=== PATIENT | male | born 1955 | race Caucasian/White ===

== ENCOUNTER 2024-10-13 21:49 | Observation (INO) ==
[2024-10-13] MEDS: SODIUM CHLORIDE 0.9% 1,000 ML IV ONE (22:13)
[2024-10-13 22:16] LABS: Basophils # (auto) 0.05 K/uL (0.00-0.20); Basophils % (auto) 0.4 %; Eosinophils % (auto) 1.6 %; Hematocrit (blood only) 47.4 % (42.0-52.0); Hemoglobin 16.8 g/dl (14.0-18.0); Immature Granulocytes # (auto) 0.06 K/uL (0.01-0.20); Immature Granulocytes % (auto) 0.5 %; Lymphocytes # (auto) 1.74 K/uL (1.20-3.40); Lymphocytes % (auto) 13.5 %; Mean Corpuscular Hemoglobin 31.3 pg (25.0-34.0); Mean Corpuscular Hgb Conc 35.4 g/dL (32.0-36.0); Mean Corpuscular Volume 88.3 fL (80.0-100.0); Mean Platelet Volume 9.6 fL (9.4-12.4); Monocytes # (auto) 0.66 K/uL (0.11-0.59); Monocytes % (auto) 5.1 %; Neutrophils # (auto) 10.18 K/uL (1.40-6.50); Neutrophils % (auto) 78.9 %; Platelet Count 156 K/uL (130-400); RDW Standard Deviation 41.7 fL (36.4-46.3); Red Blood Count 5.37 M/uL (4.70-6.10); White Blood Count 12.89 K/ul (4.8-10.8)
--- NOTE | 2024-10-13 22:25 | Emergency Department Note ---
Impression & Plan Syncope, Transaminitis, Vomiting ED Provider Note NAME: SONIA GIRON AGE: 69 SEX: M : 1955 ARRIVES VIA: Ambulance INFORMANT: Patient ED PROVIDER(S): Shawn Cullen MD CHIEF COMPLAINT: Syncope PLAN: Disposition: Admit MEDICAL DECISION MAKING: The patient is a pleasant 69-year-old gentleman with a past medical history of hypertension, hyperlipidemia, GERD, diabetes who presents to the emergency department via EMS for evaluation of episode of syncope which occurred prior to arrival when the patient was playing cards with friends and family and bystanders noted that the patient suddenly sunk into his chair with his head down but eyes open as if he were yawning but was unresponsive. During the episode he appeared to attempt to speak but was somewhat slurred and then again unresponsive where the episode lasted approximately 3 minutes. Patient had apparently been incontinent of urine. The patient reports he was feeling fine this evening and does not recall any preceding symptoms nor any movements during the episode where he was attempting to speak. He denies any recent fevers, chills, cough, congestion, GI or symptoms. Patient's reports she did have norovirus last week and had recovered uneventfully. On evaluation patient no acute distress, afebrile with blood pressures to 170s/90s but improving with IV fluid hydration and otherwise stable vital signs. Appears clinically dry. No focal neurologic deficits. EKG without overt acute ischemia. Chest x-ray negative for acute cardiopulmonary process. WBC 12.8 K with neutrophilia but no left shift, nonspecific. H/H and platelets within normal limits. Chemistry without metabolic acidosis. Total bilirubin 1.9 and direct bilirubin 0.3, nonspecific. AST and ALT are mildly above normal at 50 and 63, respectively. CPK within normal limits. High-sensitivity troponin 9.0, within normal limits. Lipase is normal. TSH within normal limits. UA without evidence of infection. Respiratory viral panel was negative. CT of the head and CT of the head neck were 4 negative for ICH, ischemia or severe narrowing occlusion of large vessels. CT of the abdomen pelvis demonstrates evidence of enteritis and no evidence of obstruction. Gallbladder is unremarkable without ductal dilatation. Given the patient's episode of syncope without clear precipitating factors patient and family do agree with plan for admission for further observation and management. Case was discussed with Dr. Loo, [facility] [place], who will evaluate the patient for admission. Further management per admitting team. Triage Nursing notes reviewed and agree them. Prior/external medical records reviewed Vital Signs: reviewed Differential diagnosis: Vasovagal event, dehydration, infection, hypoglycemia, electrolyte abnormalities, cardiac sources, intracerebral event, pulmonary embolism, seizure, toxicologic, neurologic, as well as other pathologies. ER treatment provided: See below. Diagnostics interpreted by me: ECG: Normal sinus rhythm, 72 bpm, no ectopy, right bundle branch block, left anterior fascicular block, no overt ST elevation or depression, QTc 479, QRS 150. Cardiac Monitoring: An order for continuous cardiac monitoring was placed and demonstrated Normal sinus rhythm, 72 bpm, no ectopy, Laboratory studies: See below Imaging studies: See below Consultation(s): Case was discussed with Dr. Loo, [facility] [place], who will evaluate the patient for admission. HPI: The patient is a pleasant 69-year-old gentleman with a past medical history of hypertension, hyperlipidemia, GERD, diabetes who presents to the emergency department via EMS for evaluation of episode of syncope which occurred prior to arrival when the patient was playing cards with friends and family and bystanders noted that the patient suddenly sunk into his chair with his head down but eyes open as if he were yawning but was unresponsive. During the episode he appeared to attempt to speak but was somewhat slurred and then again unresponsive where the episode lasted approximately 3 minutes. Patient had apparently been incontinent of urine. The patient reports he was feeling fine this evening and does not recall any preceding symptoms nor any movements during the episode where he was attempting to speak. He denies any recent fevers, chills, cough, congestion, GI or symptoms. Patient's reports she did have norovirus last week and had recovered uneventfully. ROS: See above HPI for pertinent positives & negatives. A total of 10 systems reviewed and were otherwise negative. VITALS:See Below PHYSICAL EXAMINATION: GENERAL: Awake, alert, in no distress HENT: Normocephalic, atraumatic. Oropharynx with dry mucous membranes and otherwise unremarkable. EYES: Normal conjunctiva. Sclera non-icteric. NECK: Supple. No nuchal rigidity. FROM. No JVD. RESPIRATORY: Clear to auscultation. CARDIAC: Regular rate, normal rhythm. Extremities warm and well perfused. Pulses equal. ABDOMEN: Soft, non-distended. No tenderness to palpation. No rebound or guarding. No masses. MUSCULOSKELETAL: Chest examination reveals no tenderness. The back is symmetrical on inspection without obvious abnormality. There is no CVA tenderness to palpation. No joint edema. LOWER EXTREMITIES: Calves are equal size bilaterally and non-tender. No edema. No discoloration. NEURO: No focal sensory or motor deficits noted. CNII-XII grossly intact. 5/5 strength and SILT x 4 extremities. Cerebellar function intact including [id number], alternating palms, [id number]. SKIN: No rash or jaundice noted. Shawn Cullen MD Past Med/Surg History Problem List (Updated 10/14/24 @ 16:27 by Shawn Cullen MD) Vomiting (Acute) Transaminitis (Acute) Gilbert syndrome HLD (hyperlipidemia) HTN (hypertension) GERD (gastroesophageal reflux disease) T2DM (type 2 diabetes mellitus) Syncope (Acute) Social History Smoking Status: Never smoker Hx Alcohol Use: No Hx Substance Use: No Preferred Language: Japanese Communication Ability: Effective Hansard Reporter Required: No Beliefs That Will Affect Care: None Current Living Situation: Spouse Other Information That Helps Us Care for You: No Feels Safe at Home: Yes Safety Concerns: Feels Safe At This Time Assistive Devices: None Allergies Allergies Allergy/AdvReac Type Severity Reaction Status Date / Time No Known Allergies Allergy Verified 10/14/24 03:15 Home Meds Home Medications Medication Instructions Recorded Confirmed allopurinol 300 mg tablet 300 mg DAILY 10/14/24 10/14/24 aspirin 81 mg tablet 81 mg PO DAILY 10/14/24 10/14/24 atorvastatin 40 mg tablet 40 mg HS 10/14/24 10/14/24 glipizide 10 mg tablet, extended 10 mg PO DAILY 10/14/24 10/14/24 release 24 hr irbesartan 75 mg tablet 75 mg DAILY 10/14/24 10/14/24 metformin 500 mg tablet,extended 500 mg PO DAILY 10/14/24 10/14/24 release 24 hr omeprazole 40 mg capsule,delayed 40 mg DAILY 10/14/24 10/14/24 release omeprazole 40 mg capsule,delayed 40 mg DAILY 10/14/24 10/14/24 release Results & Data (ED) Vital Signs Vital Signs - 24 hr 10/13/24 21:59 10/13/24 22:01 10/13/24 22:03 Temperature 36.3 C L Temperature Source Oral Pulse Rate 68 70 Pulse Rate [Apical] Pulse Rate from SpO2 Sensor Respiratory Rate 18 Respiratory Effort / Characteristics Non-Labored Spontaneous Respiratory Depth Normal Blood Pressure 172/91 H Blood Pressure [Right Arm] Blood Pressure Mean 118 Blood Pressure Mean [Right Arm] Pulse Oximetry 96 96 Oxygen Delivery Method Room Air Room Air Sepsis Recent Fever Within 48 Hours No Sepsis New/Unexplained Change in Mental Status No Sepsis Action Taken by Nursing No Action Required 10/13/24 23:31 10/14/24 01:43 10/14/24 01:56 Temperature Temperature Source Pulse Rate 88 Pulse Rate [Apical] 82 88 Pulse Rate from SpO2 Sensor Respiratory Rate 18 18 Respiratory Effort / Characteristics Respiratory Depth Blood Pressure Blood Pressure [Right Arm] 137/87 136/78 Blood Pressure Mean Blood Pressure Mean [Right Arm] 103 97 Pulse Oximetry 93 95 Oxygen Delivery Method Room Air Room Air Sepsis Recent Fever Within 48 Hours Sepsis New/Unexplained Change in Mental Status Sepsis Action Taken by Nursing 10/14/24 02:03 Temperature Temperature Source Pulse Rate 89 Pulse Rate [Apical] Pulse Rate from SpO2 Sensor 88 Respiratory Rate 20 Respiratory Effort / Characteristics Respiratory Depth Blood Pressure 140/84 Blood Pressure [Right Arm] Blood Pressure Mean 102 Blood Pressure Mean [Right Arm] Pulse Oximetry 93 Oxygen Delivery Method Sepsis Recent Fever Within 48 Hours Sepsis New/Unexplained Change in Mental Status Sepsis Action Taken by Nursing Laboratory Data Attestation: I reviewed the patient's lab results. 10/13/24 21:57 10/13/24 21:57 Lab Results 10/13/24 10/13/24 10/14/24 Range/Units 21:57 23:05 00:18 WBC 12.89 H (4.8-10.8) K/ul RBC 5.37 (4.70-6.10) M/uL Hgb 16.8 (14.0-18.0) g/dl Hct 47.4 (42.0-52.0) % MCV 88.3 (80.0-100.0) fL MCH 31.3 (25.0-34.0) pg MCHC 35.4 (32.0-36.0) g/dL RDW Std Deviation 41.7 (36.4-46.3) fL RDW Coeff of Yaw 13.0 (11.5-14.5) % Plt Count 156 (130-400) K/uL MPV 9.6 (9.4-12.4) fL Immature Gran % (Auto) 0.5 % Neut % (Auto) 78.9 % Lymph % (Auto) 13.5 % [place] % (Auto) 5.1 % Eos % (Auto) 1.6 % Baso % (Auto) 0.4 % Neut # (Auto) 10.18 H (1.40-6.50) K/uL Lymph # (Auto) 1.74 (1.20-3.40) K/uL [place] # (Auto) 0.66 H (0.11-0.59) K/uL Eos # (Auto) 0.20 (0.00-0.50) K/uL Baso # (Auto) 0.05 (0.00-0.20) K/uL Immature Gran # (Auto) 0.06 (0.01-0.20) K/uL PT 11.0 (9.0-12.0) Seconds INR 1.0 (0.9-1.1) Sodium 141 (136-145) mmol/L Potassium 3.8 (3.5-5.1) mmol/L Chloride 104 (98-107) mmol/L Carbon Dioxide 27 (21-32) mmol/L Anion Gap 10 (3-11) BUN 21 (6-23) mg/dl Creatinine 1.11 (0.6-1.4) mg/dl Est Cr Clr Drug Dosing 70.5 ml/min eGFR 71.88 BUN/Creatinine Ratio 18.9 (10-20) Glucose 170 H (70-99(Fasting)) mg/dl Calcium 9.2 (8.6-10.3) mg/dl Phosphorus 4.1 (2.5-4.9) mg/dl Magnesium 1.9 (1.7-2.4) mg/dl Total Bilirubin 1.9 H (0.2-1.0) mg/dl Direct Bilirubin 0.3 H (0-0.2) mg/dl AST 50 H (13-39) U/L ALT 63 H (7-52) U/L Alkaline Phosphatase 127 H (34-104) U/L Total Creatine Kinase 82 (30-223) U/L Troponin I High Sens 9.0 (0-20) pg/ml Total Protein 7.5 (6.0-8.3) gm/dl Albumin 4.2 (3.4-5.0) gm/dl Globulin 3.3 (2.5-4.0) gm/dl Albumin/Globulin Ratio 1.3 (0.9-2) Lipase 21 (11-82) U/L TSH 3.897 (0.300-4.500) uIu/ml Urine Color Yellow Urine Appearance Clear (Clear) Urine pH 5.0 (4.5-7.5) Ur Specific Curtis > 1.045 H (1.000-1.030) Urine Protein Negative (Negative) Urine Glucose (UA) Negative (Negative) Urine Ketones 1+ H (Negative) Urine Blood Negative (Negative) Urine Nitrite Negative (Negative) Urine Bilirubin Negative (Negative) Urine Urobilinogen Negative (Negative) Ur Leukocyte Esterase Negative (Negative) Adenovirus (PCR) Not Detected (NotDetected) B. pertussis DNA (PCR) Not Detected (NotDetected) B.parapertussis DNA PCR Not Detected (NotDetected) C. pneumoniae DNA (PCR) Not Detected (NotDetected) Coronavirus OC43 (PCR) Not Detected (NotDetected) Coronavirus HKU1 (PCR) Not Detected (NotDetected) Coronavirus 229E (PCR) Not Detected (NotDetected) SARS-CoV-2 (PCR) Not Detected (NotDetected) Coronavirus NL63 (PCR) Not Detected (NotDetected) Human Metapneumovir PCR Not Detected (NotDetected) Influenza Type A (PCR) Not Detected (NotDetected) Influenza Type B (PCR) Not Detected (NotDetected) M. pneumoniae (PCR) Not Detected (NotDetected) Parainfluenza 1 (PCR) Not Detected (NotDetected) Parainfluenza 2 (PCR) Not Detected (NotDetected) Parainfluenza 3 (PCR) Not Detected (NotDetected) Parainfluenza 4 (PCR) Not Detected (NotDetected) RSV (PCR) Not Detected (NotDetected) Entero/Rhino (PCR) Not Detected (NotDetected) Administered Medications Acetaminophen (Acetaminophen 500 Mg Tab) 1,000 mg PO Q8H PRN PRN Reason: Pain or Fever Stop: 11/13/24 03:37 Last Admin: 10/14/24 08:48 Dose: 1,000 mg Documented By: CB Allopurinol (Allopurinol 300 Mg Tab) 300 mg PO DAILY ONEL Stop: 11/13/24 08:59 Last Admin: 10/14/24 08:46 Dose: 300 mg Documented By: CB Aspirin (Aspirin 81 Mg Ectab) 81 mg PO DAILY ONEL Stop: 11/13/24 08:59 Last Admin: 10/14/24 08:46 Dose: 81 mg Documented By: CB Enoxaparin Sodium (Enoxaparin Inj 40 Mg/0.4 Ml Syr) 40 mg SQ Q24H ONEL Stop: 11/13/24 08:59 Last Admin: 10/14/24 08:46 Dose: 40 mg Documented By: CB Glipizide (Glipizide Er 2.5 Mg Tabcr) 10 mg PO QDB ONEL Stop: 11/13/24 07:29 Last Admin: 10/14/24 08:45 Dose: 10 mg Documented By: KAY Parenteral Electrolytes (Plasma-Lyte A Ph 7.4) 1,000 mls @ 80 mls/hr IV .[id number] ONEL Stop: 10/15/24 04:44 Last Admin: 10/14/24 16:03 Dose: 80 mls/hr Documented By: Infusion: 10/14/24 16:03 Dose: Infused Documented By: Admin: 10/14/24 04:03 Dose: 80 mls/hr Documented By: MRL Losartan Potassium (Losartan Potassium 25 Mg Tab) 25 mg PO DAILY ONEL Stop: 11/13/24 08:59 Last Admin: 10/14/24 08:46 Dose: 25 mg Documented By: CB Metformin HCl (Metformin Hcl Er 500 Mg Tabcr) 500 mg PO DAILY ONEL Stop: 11/13/24 08:59 Last Admin: 10/14/24 10:41 Dose: Not Given Documented By: CB Pantoprazole Sodium (Pantoprazole 40 Mg Tab) 40 mg PO DAILY ONEL Stop: 11/13/24 08:59 Last Admin: 10/14/24 08:46 Dose: 40 mg Documented By: KAY Discontinued Medications Sodium Chloride (Nss) 1,000 mls @ 999 mls/hr IV .Q1H1M ONE Stop: 10/13/24 23:04 Last Infusion: 10/14/24 00:05 Dose: Infused Documented By: Admin: 10/13/24 22:13 Dose: 999 mls/hr Documented By: MARLEY Famotidine (Pepcid 20mg Iv Push) 20 mg in 5 mls @ 2.5 mls/min IV NOW STA Stop: 10/13/24 22:52 Last Admin: 10/13/24 23:04 Dose: 2.5 mls/min Documented By: MARLEY Ioversol (Optiray 320 125ml) 118 ml IV ONCE ONE Stop: 10/13/24 23:15 Last Admin: 10/13/24 23:14 Dose: 118 ml Documented By: JEFF Ondansetron HCl (Ondansetron Inj 2 Mg/Ml 2 Ml Vial) 4 mg IV NOW STA Stop: 10/13/24 22:52 Last Admin: 10/13/24 23:04 Dose: 4 mg Documented By: MARLEY Imaging Data Radiologist's Impression: Chest X-Ray 10/13/24 22:03 Exam(s): XR CXR 1 VIEW EXAM: XR Chest, 1 View CLINICAL HISTORY: Reason for exam: syncope. TECHNIQUE: Frontal view of the chest. COMPARISON: No relevant prior studies available. FINDINGS: Lungs: No infiltrate. No atelectasis. No CHF. Pleural space: No pleural effusion. No pneumothorax. Heart: Unremarkable. No cardiomegaly. Mediastinum: Unremarkable. Normal mediastinal contour. Bones/joints: Unremarkable. No acute fracture. IMPRESSION: No acute abnormality. Electronically signed by: Zhang Olvera M.D. 10/14/24 00:51 AM Abdomen/Pelvis CT 10/13/24 22:51 Exam(s): CT ABDOMEN + PELVIS With Contrast IV Amt: 118 cc opti 320 EXAM: CT Abdomen and Pelvis With Intravenous Contrast CLINICAL HISTORY: Syncope, n/v. TECHNIQUE: Axial computed tomography images of the abdomen and pelvis with intravenous contrast. CTDI is 27.95 mGy and DLP is 1503.52 mGy-cm. Automated exposure control was utilized for the study. A dose lowering technique was utilized adhering to the principles of ALARA. CONTRAST: Patient received 118 cc opti 320 of IV contrast COMPARISON: No relevant prior studies available. FINDINGS: Lung bases: Unremarkable. No mass. No consolidation. ABDOMEN: Liver: Hypodense/fatty. No mass. Gallbladder and bile ducts: Unremarkable. No calcified stones. No ductal dilation. Pancreas: Partially fatty replaced. No mass. No ductal dilation. Spleen: Top normal spleen 12.8 cm length. Adrenals: Unremarkable. No mass. Kidneys and ureters: 2.4 cm cyst lower pole left kidney. No obstructive uropathy. No obstructing renal or ureteral calculi. No hydronephrosis or hydroureter. Stomach and bowel: Small hiatal hernia. Top normal caliber proximal to mid small bowel with mild wall thickening consistent with a nonspecific enteritis. Remainder of bowel is unremarkable without obstruction or ileus. Few sigmoid colon diverticuli without evidence for diverticulitis. PELVIS: Appendix: No findings to suggest acute appendicitis. Bladder: Unremarkable. No mass. Reproductive: Heterogeneous prostate gland with calcifications. ABDOMEN and PELVIS: Intraperitoneal space: No free air. No free fluid. Bones/joints: No acute fracture. Degenerative changes of the spine. Soft tissues: Unremarkable. Vasculature: Atherosclerotic vascular calcifications. No abdominal aortic aneurysm. Lymph nodes: Unremarkable. No enlarged lymph nodes. IMPRESSION: Top normal caliber proximal to mid small bowel with mild wall thickening consistent with a nonspecific enteritis. Small hiatal hernia. Few sigmoid colon diverticuli without evidence for diverticulitis. Electronically signed by: Zhang Olvera M.D. 10/14/24 00:[address] 10/13/24 22:51 Exam(s): CT HEAD Without Contrast EXAM: CT Head Without Intravenous Contrast CLINICAL HISTORY: Syncope, n/v. TECHNIQUE: Axial computed tomography images of the head/brain without intravenous contrast. CTDI is 35.37 mGy and DLP is 624.41 mGy-cm. Automated exposure control was utilized for the study. A dose lowering technique was utilized adhering to the principles of ALARA. COMPARISON: No relevant prior studies available. FINDINGS: Brain: Ventricles and sulci normal in size and configuration for age. No acute stroke. No acute hemorrhage. No abnormal extra-axial fluid collection. Ventricles: No hydrocephalus. No midline shift. Bones/joints: Unremarkable. No acute fracture. Soft tissues: Unremarkable. Sinuses: Completely opacified visualized left maxillary sinus. IMPRESSION: No acute intracranial abnormality. Electronically signed by: Zhang Olvera M.D. 10/14/24 00:12 AM Head CTA 10/13/24 22:51 Exam(s): CTA HEAD With Contrast IV Amt: 118 cc opti 320 EXAM: CT Angiography Head With Intravenous Contrast CLINICAL HISTORY: Syncope, n/v. TECHNIQUE: Axial computed tomographic angiography images of the head with intravenous contrast. CTDI is 69.04 mGy and DLP is 1171.09 mGy-cm. Automated exposure control was utilized for the study. A dose lowering technique was utilized adhering to the principles of ALARA. 3D and MIP reconstructed images were created and reviewed. CONTRAST: Patient received 118 cc opti 320 of IV contrast COMPARISON: CT Brain 10-13-2024. FINDINGS: Right internal carotid artery: No acute abnormality. Intracranial segment is patent with no significant stenosis. No aneurysm. Right anterior cerebral artery: Unremarkable. No occlusion or significant stenosis. No aneurysm. Right middle cerebral artery: Unremarkable. No occlusion or significant stenosis. No aneurysm. Right posterior cerebral artery: Unremarkable. No occlusion or significant stenosis. No aneurysm. Right vertebral artery: At this carotid calcifications of the right vertebral artery with intact distal runoff. Left internal carotid artery: No acute abnormality. Intracranial segment is patent with no significant stenosis. No aneurysm. Left anterior cerebral artery: Unremarkable. No occlusion or significant stenosis. No aneurysm. Left middle cerebral artery: Unremarkable. No occlusion or significant stenosis. No aneurysm. Left posterior cerebral artery: Unremarkable. No occlusion or significant stenosis. No aneurysm. Left vertebral artery: Unremarkable as visualized. Basilar artery: Unremarkable. No occlusion or significant stenosis. No aneurysm. IMPRESSION: No large vessel occlusion. Electronically signed by: Zhang Olvera M.D. 10/14/24 00:22 AM Neck CTA 10/13/24 22:51 Exam(s): CTA NECK With Contrast IV Amt: 118 cc opti 320 EXAM: CT Angiography Neck With Intravenous Contrast CLINICAL HISTORY: Syncope, n/v. TECHNIQUE: Routine carotid CT angiography protocol was performed with intravenous contrast. NASCET criteria using the distal ICAs for comparison were used for evaluation of stenoses. CTDI is 69.04 mGy and DLP is 1171.09 mGy-cm. Automated exposure control was utilized for the study. A dose lowering technique was utilized adhering to the principles of ALARA. 3D and MIP reconstructed images were created and reviewed. CONTRAST: Patient received 118 cc opti 320 of IV contrast COMPARISON: None. FINDINGS: VASCULATURE: Right common carotid artery: Unremarkable. No occlusion or significant stenosis. No dissection. Right internal carotid artery: Mild calcified plaque at the carotid bulb without a hemodynamically significant stenosis. No dissection. Right external carotid artery: Unremarkable. No occlusion. Right vertebral artery: Unremarkable. No occlusion or significant stenosis. No dissection. Left common carotid artery: Unremarkable. No occlusion or significant stenosis. No dissection. Left internal carotid artery: Mild calcified plaque at the carotid bulb without a hemodynamically significant stenosis. No dissection. Left external carotid artery: Unremarkable. No occlusion. Left vertebral artery: Unremarkable. No occlusion or significant stenosis. No dissection. NECK: Bones/joints: Degenerative changes of the spine. No acute fracture. Soft tissues: Unremarkable. Lung apices: Clear. CAROTID STENOSIS REFERENCE USING NASCET CRITERIA: % ICA stenosis = (1 - narrowest ICA diameter/diameter of distal cervical ICA) x 100. Mild - <50% stenosis. Moderate - 50-69% stenosis. Severe - 70-94% stenosis. Near occlusion - 95-99% stenosis. Occluded - 100% stenosis. IMPRESSION: No hemodynamically significant stenosis. Electronically signed by: Zhang Olvera M.D. 10/14/24 00:29 AM Discharge Plan Visit Data Chief Complaint: Syncope Stated Complaint: Syncope ED Provider: Shawn Cullen Discharge Problem: Syncope, Transaminitis, Vomiting Patient Disposition: Admitted As Inpatient Discharge Instructions Interventions: ED Discharge Assessment Last Done: 10/14/24 03:07 Discharge Problem: Syncope Qualifiers: Syncope type: unspecified Qualified Code(s): R55 - Syncope and collapse Vomiting Qualifiers: Vomiting type: unspecified Nausea presence: unspecified Qualified Code(s): R 11.10 - Vomiting, unspecified
[2024-10-13 22:33] LABS: Albumin Globulin Ratio 1.3 (0.9-2); Albumin Level 4.2 gm/dl (3.4-5.0); BUN Creatinine Ratio 18.9 (10-20); Bilirubin,Total 1.9 mg/dl (0.2-1.0); Calcium 9.2 mg/dl (8.6-10.3); Creatinine Clr Calc Pharmacy 70.5 ml/min; Globulin 3.3 gm/dl (2.5-4.0); Magnesium 1.9 mg/dl (1.7-2.4); Phosphorus 4.1 mg/dl (2.5-4.9); Potassium 3.8 mmol/L (3.5-5.1); Total Protein 7.5 gm/dl (6.0-8.3)
[2024-10-13 22:49] LABS: Thyroid Stimulating Hormone 3.897 uIu/ml (0.300-4.500)
[2024-10-13] MEDS: ONDANSETRON INJ 2 MG/ML 2 ML VIAL IV STA (23:04)
[2024-10-13] MEDS: FAMOTIDINE 20MG IV PUSH 20 MG/5 ML SYR IV STA (23:04)
[2024-10-13 23:10] LABS: Bilirubin Direct 0.3 mg/dl (0-0.2)
[2024-10-13] MEDS: OPTIRAY 320 125ml IV ONE (23:14)
[2024-10-14 00:07] LABS: Adenovirus PCR Not Detected (NotDetected); Bordetella parapertussis PCR Not Detected (NotDetected); Bordetella pertussis PCR Not Detected (NotDetected); Chlamydia pneumoniae PCR Not Detected (NotDetected); Coronavirus 229E PCR Not Detected (NotDetected); Coronavirus CoV-2 (COVID19)PCR Not Detected (NotDetected); Coronavirus HKU1 PCR Not Detected (NotDetected); Coronavirus NL63 PCR Not Detected (NotDetected); Coronavirus OC43PCR Not Detected (NotDetected); Human Metapneumovirus PCR Not Detected (NotDetected); Influenza A PCR Not Detected (NotDetected); Influenza B PCR Not Detected (NotDetected); Mycoplasma pneumoniae PCR Not Detected (NotDetected); Parainfluenza Virus 1 PCR Not Detected (NotDetected); Parainfluenza Virus 2 PCR Not Detected (NotDetected); Parainfluenza Virus 3 PCR Not Detected (NotDetected); Parainfluenza Virus 4 PCR Not Detected (NotDetected); Respiratory Syncytial VirusPCR Not Detected (NotDetected); Rhinovirus/Enterovirus PCR Not Detected (NotDetected)
--- NOTE | 2024-10-14 00:13 | CT Scan Report ---
Exam(s): CT HEAD Without Contrast EXAM: CT Head Without Intravenous Contrast CLINICAL HISTORY: Syncope, n/v. TECHNIQUE: Axial computed tomography images of the head/brain without intravenous contrast. CTDI is 35.37 mGy and DLP is 624.41 mGy-cm. Automated exposure control was utilized for the study. A dose lowering technique was utilized adhering to the principles of ALARA. COMPARISON: No relevant prior studies available. FINDINGS: Brain: Ventricles and sulci normal in size and configuration for age. No acute stroke. No acute hemorrhage. No abnormal extra-axial fluid collection. Ventricles: No hydrocephalus. No midline shift. Bones/joints: Unremarkable. No acute fracture. Soft tissues: Unremarkable. Sinuses: Completely opacified visualized left maxillary sinus. IMPRESSION: No acute intracranial abnormality. Electronically signed by: Zhang Olvera M.D. 10/14/24 00:12 AM
--- NOTE | 2024-10-14 00:23 | CT Scan Report ---
Exam(s): CTA HEAD With Contrast IV Amt: 118 cc opti 320 EXAM: CT Angiography Head With Intravenous Contrast CLINICAL HISTORY: Syncope, n/v. TECHNIQUE: Axial computed tomographic angiography images of the head with intravenous contrast. CTDI is 69.04 mGy and DLP is 1171.09 mGy-cm. Automated exposure control was utilized for the study. A dose lowering technique was utilized adhering to the principles of ALARA. 3D and MIP reconstructed images were created and reviewed. CONTRAST: Patient received 118 cc opti 320 of IV contrast COMPARISON: CT Brain 10-13-2024. FINDINGS: Right internal carotid artery: No acute abnormality. Intracranial segment is patent with no significant stenosis. No aneurysm. Right anterior cerebral artery: Unremarkable. No occlusion or significant stenosis. No aneurysm. Right middle cerebral artery: Unremarkable. No occlusion or significant stenosis. No aneurysm. Right posterior cerebral artery: Unremarkable. No occlusion or significant stenosis. No aneurysm. Right vertebral artery: At this carotid calcifications of the right vertebral artery with intact distal runoff. Left internal carotid artery: No acute abnormality. Intracranial segment is patent with no significant stenosis. No aneurysm. Left anterior cerebral artery: Unremarkable. No occlusion or significant stenosis. No aneurysm. Left middle cerebral artery: Unremarkable. No occlusion or significant stenosis. No aneurysm. Left posterior cerebral artery: Unremarkable. No occlusion or significant stenosis. No aneurysm. Left vertebral artery: Unremarkable as visualized. Basilar artery: Unremarkable. No occlusion or significant stenosis. No aneurysm. IMPRESSION: No large vessel occlusion. Electronically signed by: Zhang Olvera M.D. 10/14/24 00:22 AM
--- NOTE | 2024-10-14 00:29 | CT Scan Report ---
Exam(s): CTA NECK With Contrast IV Amt: 118 cc opti 320 EXAM: CT Angiography Neck With Intravenous Contrast CLINICAL HISTORY: Syncope, n/v. TECHNIQUE: Routine carotid CT angiography protocol was performed with intravenous contrast. NASCET criteria using the distal ICAs for comparison were used for evaluation of stenoses. CTDI is 69.04 mGy and DLP is 1171.09 mGy-cm. Automated exposure control was utilized for the study. A dose lowering technique was utilized adhering to the principles of ALARA. 3D and MIP reconstructed images were created and reviewed. CONTRAST: Patient received 118 cc opti 320 of IV contrast COMPARISON: None. FINDINGS: VASCULATURE: Right common carotid artery: Unremarkable. No occlusion or significant stenosis. No dissection. Right internal carotid artery: Mild calcified plaque at the carotid bulb without a hemodynamically significant stenosis. No dissection. Right external carotid artery: Unremarkable. No occlusion. Right vertebral artery: Unremarkable. No occlusion or significant stenosis. No dissection. Left common carotid artery: Unremarkable. No occlusion or significant stenosis. No dissection. Left internal carotid artery: Mild calcified plaque at the carotid bulb without a hemodynamically significant stenosis. No dissection. Left external carotid artery: Unremarkable. No occlusion. Left vertebral artery: Unremarkable. No occlusion or significant stenosis. No dissection. NECK: Bones/joints: Degenerative changes of the spine. No acute fracture. Soft tissues: Unremarkable. Lung apices: Clear. CAROTID STENOSIS REFERENCE USING NASCET CRITERIA: % ICA stenosis = (1 - narrowest ICA diameter/diameter of distal cervical ICA) x 100. Mild - <50% stenosis. Moderate - 50-69% stenosis. Severe - 70-94% stenosis. Near occlusion - 95-99% stenosis. Occluded - 100% stenosis. IMPRESSION: No hemodynamically significant stenosis. Electronically signed by: Zhang Olvera M.D. 10/14/24 00:29 AM
[2024-10-14 00:36] LABS: Appearance Urine Clear (Clear); Bilirubin Urine Negative (Negative); Blood Urine Negative (Negative); Color Urine Yellow; Glucose Urine UA Negative (Negative); Ketones Urine 1+ (Negative); Leukocyte Esterase Urine Negative (Negative); Nitrite Urine Negative (Negative); Protein Urine Negative (Negative); Specific Gravity Urine > 1.045 (1.000-1.030); Urobilinogen Urine Negative (Negative)
--- NOTE | 2024-10-14 00:37 | CT Scan Report ---
Exam(s): CT ABDOMEN + PELVIS With Contrast IV Amt: 118 cc opti 320 EXAM: CT Abdomen and Pelvis With Intravenous Contrast CLINICAL HISTORY: Syncope, n/v. TECHNIQUE: Axial computed tomography images of the abdomen and pelvis with intravenous contrast. CTDI is 27.95 mGy and DLP is 1503.52 mGy-cm. Automated exposure control was utilized for the study. A dose lowering technique was utilized adhering to the principles of ALARA. CONTRAST: Patient received 118 cc opti 320 of IV contrast COMPARISON: No relevant prior studies available. FINDINGS: Lung bases: Unremarkable. No mass. No consolidation. ABDOMEN: Liver: Hypodense/fatty. No mass. Gallbladder and bile ducts: Unremarkable. No calcified stones. No ductal dilation. Pancreas: Partially fatty replaced. No mass. No ductal dilation. Spleen: Top normal spleen 12.8 cm length. Adrenals: Unremarkable. No mass. Kidneys and ureters: 2.4 cm cyst lower pole left kidney. No obstructive uropathy. No obstructing renal or ureteral calculi. No hydronephrosis or hydroureter. Stomach and bowel: Small hiatal hernia. Top normal caliber proximal to mid small bowel with mild wall thickening consistent with a nonspecific enteritis. Remainder of bowel is unremarkable without obstruction or ileus. Few sigmoid colon diverticuli without evidence for diverticulitis. PELVIS: Appendix: No findings to suggest acute appendicitis. Bladder: Unremarkable. No mass. Reproductive: Heterogeneous prostate gland with calcifications. ABDOMEN and PELVIS: Intraperitoneal space: No free air. No free fluid. Bones/joints: No acute fracture. Degenerative changes of the spine. Soft tissues: Unremarkable. Vasculature: Atherosclerotic vascular calcifications. No abdominal aortic aneurysm. Lymph nodes: Unremarkable. No enlarged lymph nodes. IMPRESSION: Top normal caliber proximal to mid small bowel with mild wall thickening consistent with a nonspecific enteritis. Small hiatal hernia. Few sigmoid colon diverticuli without evidence for diverticulitis. Electronically signed by: Zhang Olvera M.D. 10/14/24 00:36 AM
--- NOTE | 2024-10-14 00:52 | XRay Report ---
Exam(s): XR CXR 1 VIEW EXAM: XR Chest, 1 View CLINICAL HISTORY: Reason for exam: syncope. TECHNIQUE: Frontal view of the chest. COMPARISON: No relevant prior studies available. FINDINGS: Lungs: No infiltrate. No atelectasis. No CHF. Pleural space: No pleural effusion. No pneumothorax. Heart: Unremarkable. No cardiomegaly. Mediastinum: Unremarkable. Normal mediastinal contour. Bones/joints: Unremarkable. No acute fracture. IMPRESSION: No acute abnormality. Electronically signed by: Zhang Olvera M.D. 10/14/24 00:51 AM
--- OUTSIDE RECORDS SUMMARY | 2024-10-14 01:26 | External Medical Summary | Continuity of Care Document ---
Author Name Unknown Organization [facility] [id number] [place] [address] [id number] Care Team Providers Care [facility] Police Officer Name Role Phone Jose Antonio Costa Primary Care Physician [phone] Encounter [facility] [id number] Date(s): 06/02/24 - 06/02/24 [facility] [address] [facility] [address] [address] [phone] Encounter Diagnosis Diabetes(Discharge Diagnosis) - 06/02/24 Gilbert's syndrome(Discharge Diagnosis) - 06/02/24 HBP (high blood pressure)(Discharge Diagnosis) - 06/02/24 MIXED HYPERLIPIDEMIA(Discharge Diagnosis) - 06/02/24 Discharge Disposition: Home or Self Care Attending Physician: DO Costa Franklin J Allergies, Adverse Reactions, Alerts No Known Allergies Assessment and Plan Extracted from: Title:General Exam * Author:DO Costa Franklin J Date:06/02/24 Impression and Plan Diagnosis HBP (high blood pressure) ([id number] I10, Discharge, Medical). Gilbert's syndrome ([id number]-WC E80.4, Discharge, Medical). MIXED HYPERLIPIDEMIA (HIA99-TB E78.2, Discharge, Medical). Diabetes (FCR12-BM E11.9, Discharge, Medical). Plan: Diabetes (Chronic/not at goal) A1c with marked improvement Continue glipizide to 10 mg extended release in a.m. Continue metformin 500 mg in p.m. Recheck A1c in 6 months HTN (Chronic/controlled) Controlled Continue irbesartan 75 mg daily BMP shows normal renal function and serum potassium Recheck blood pressure in 6 months Hyperlipidemia (Chronic/controlled) LDL still at goal with lower statin dose Continue atorvastatin 40 mg Recheck lipid profile in 6 months Elevated LFTs/Gilbert's (stable) LFTs returned to normal with lower dose of atorvastatin Mild stable elevation of total bilirubin consistent with Gilbert's Right upper quadrant ultrasound (2022) showed no hepatic abnormalities Previous dedicated pelvic ultrasound demonstrated some steatohepatitis, otherwise normal Recheck CMP in 6 months GERD (controlled) Continue omeprazole Refill provided Gout (controlled) Refill allopurinol Uric acid at goal. Orders Order Profile (Selected) Outpatient Orders Completed [id number] Outpatient Visit Est Lvl 3: CMP Request: Follow Up Appointment Ambulatory: Hemoglobin A1C Request: Lipid Profile Request: . Immunizations Given and Recorded Vaccine Date Status Refusal Reason SARS-CoV-2 mRNA (Pocket Gems 12+) bivalent 07/17/22 Rec orded SARS-CoV-2 (COVID-19) mRNA BNT-162b2 vax 07/16/21 Recorded SARS-CoV-2 (COVID-19) mRNA BNT-162b2 vax 12/14/20 Recorded SARS-CoV-2 (COVID-19) mRNA BNT-162b2 vax 11/23/20 Recorded influenza virus vaccine, inactivated 05/19/21 Give n influenza virus vaccine, inactivated 07/17/20 Give n influenza virus vaccine, inactivated 05/30/19 Give n influenza virus vaccine, inactivated 05/19/18 Give n influenza virus vaccine, inactivated 05/13/17 Give n influenza virus vaccine, inactivated 07/13/16 Give n influenza virus vaccine, inactivated 05/16/15 Give n influenza virus vaccine, inactivated 06/21/13 Larry rded influenza virus vaccine, inactivated 06/08/12 Larry rded pneumococcal 13-valent vaccine 09/16/20 Given tetanus/diphtheria/pertuss, acel (Tdap) 09/16/20 R ecorded tetanus/diphtheria/pertuss, acel (Tdap) 05/29/11 G iven tetanus/diphtheria/pertuss, acel (Tdap) 11/19/05 R ecorded zoster vaccine, inactivated 1 12/08/19 Recorded zoster vaccine, inactivated 10/06/19 Recorded zoster vaccine live 05/16/15 Given hepatitis B adult vaccine 10/21/97 Recorded hepatitis B adult vaccine 05/11/97 Recorded hepatitis B adult vaccine 04/18/97 Recorded 1Result Comment: 2020-01-03: Historical information-source unspecified Medications allopurinol 300 mg oral tablet Start: 11/17/23 2:09:00 PM EDT, 1 tab, PO, Daily, Disp# 90 tab, Refills: 3 Start Date: 11/17/23 Status: Ordered aspirin Start: 12/19/21 8:10:00 AM EDT, 81 mg =, Daily Start Date: 12/19/21 Status: Ordered atorvastatin 40 mg oral tablet Start: 11/17/23 2:08:00 PM EDT, 1 tab, PO, qhs, Disp# 90 tab, Refills: 3 Start Date: 11/17/23 Stop Date: 11/11/24 Status: Ordered diclofenac 1% topical gel Start: 08/06/23 9:12:00 AM EST, 1 appl, topical, bid, Disp# 100 g, PRN: Pain, Pharmacy: [facility] #[id number] Start Date: 08/06/23 Stop Date: 08/16/23 Status: Ordered glipiZIDE 10 mg oral tablet, extended release Start: 11/17/23 2:06:00 PM EDT, 1 tab, PO, Daily, Disp# 90 tab, Refills: 3 Start Date: 11/17/23 Stop Date: 11/11/24 Status: Ordered irbesartan 75 mg oral tablet Start: 11/17/23 2:09:00 PM EDT, 1 tab, PO, Daily, Disp# 90 tab, Refills: 3 Start Date: 11/17/23 Status: Ordered MetFORMIN (Eqv-Glucophage XR) 500 mg oral tablet, extended release Start: 11/17/23 2:09:00 PM EDT, 1 tab, PO, Daily, Disp# 90 tab, Refills: 3 Start Date: 11/17/23 Status: Ordered omeprazole 40 mg oral delayed release capsule Start: 11/17/23 2:09:00 PM EDT, 1 cap, PO, Daily, Disp# 90 cap, Refills: 3 Start Date: 11/17/23 Status: Ordered Vitamin D3 5000 intl units oral capsule Start: 12/18/11 1:30:00 PM EDT, 1 cap, PO, Daily, Disp# 100 cap, Refills: 30, given to patient Start Date: 12/18/11 Status: Ordered Mental Status 06/02/24 Barriers to Learning one year None evide nt Mandatory Health Literacy Documentation Yes Health Literacy Communication Barriers N ever Primary Language Greek Problem List Condition Confirmation Course Effective Dates Status H ealth Status Informant Adult BMI > 30 Confirmed Active BPH - Benign prostatic hypertrophy Confirmed Active Diabetes Confirmed 06/18/21 Active Diverticulosis 1 Confirmed Active Current use of proton pump inhibitor Confirmed Active Family history of esophageal cancer Confirmed Active Family history of gastric cancer 2 Confirmed Active GERD Confirmed Active Gilbert's syndrome Confirmed Active History of renal stone 3 Confirmed Active HBP (high blood pressure) Confirmed Active Hypoalbuminemia Confirmed Active Discomfort of right groin Confirmed Active KIDNEY STONES 4 Confirmed Active Lipoma 5 Confirmed Active LIPOPROTEIN DEFICIENCIES Confirmed Active MIXED HYPERLIPIDEMIA Confirmed Active PERSONAL HISTORY OF COLONIC POLYPS 6, 7 Confirmed Active Schatzki's ring 8 Confirmed 11/15/91 Active Skin tag Confirmed Active Tubular adenoma Confirmed Active URIC ACID NEPHROLITHIASIS Confirmed Active Vitamin D deficiency Confirmed Active Weight disorder Confirmed Active 1on colonoscopy 2p. uncle: obese, ? if used tobacco or alcohol 3uric acid 4History of on , passed spontaneously 5right medial leg 6tubular adenoma [id number] 8by EGD Diagnosis Diagnosis Type Effective Dates Health Status Clinical Service Informant MIXED HYPERLIPIDEMIA Discharge Diagnosis 06/02/24 Non-Specified HBP (high blood pressure) Discharge Diagnosis 06/02/24 Non-Specified Gilbert's syndrome Discharge Diagnosis 06/02/24 Non-Specified Diabetes Discharge Diagnosis 06/02/24 Non-Specified Procedures Procedure Date Related Diagnosis Body Site Status Ultrasound scan of abdomen, right upper quadrant and epigastrium 1 12/24/21 Completed Colonoscopy 2, 3 06/13/20 Complete d Colonoscopy 4, 5 06/12/15 Complete d EGD: normal 06/10/11 Completed colonoscopic polypectomy 6 08/20/10 Completed colonoscopy and 2 adenomectomies 7 08/19/09 Completed Colonoscopy 8 06/07/07 Completed EGD, esoph. dilation (schatzki ring) Completed Extraction of wisdom tooth 9 Completed 11. Hepatic steatosis. 2. No gallstones or biliary ductal dilatation. 2Impression: - The examined portion of the ileum was normal. - Divericulosis in the sigmoid colon. -Non-bleeding internal hemorrhoids. - One 3 mm polyp in the ascending colon, removed with a cold biopsy forceps. Resected and retrieved. Clip (MR) conditional was placed. - One 3 mm polyp in the rectum, removed with a cold biopsy forceps. Resected and retrieved. 3biopsy tubular adenoma lympoid hyperplsasia benign repeat colonoscopy in 5 years. 4Diverticulosis in sigmoid colon and in ascending colon. One 6mm polyp in sigmoid colon- resected and retrieved. 5tubular adenoma: repeat in 2019 62 tubular adenomas; diverticulosis 7tubular adenomas 82 tubular adenomas 9x 3 Vital Signs Most recent to oldest [Reference Range]: 1 Patient Weight 90.1 kg (06/02/24 8:58 AM) Heart Rate 84 bpm (06/02/24 8:58 AM) Blood Pressure 132/80mmHg (06/02/24 8:58 AM) Cuff Pulse Pressure 52 mmHg (06/02/24 8:58 AM) Social History Social History Type Response Smoking Status Never smoked cigaret alysa Sex Male Sex Representation Male (finding) Outpatient Note * DO Cosat Franklin J: PERFORM, SIGN, VERIFY Event Display: .Outpt Note Authored Date: [id number] Patient: SONIA GIRON Age: 69 years Sex: Male : 1955 Associated Diagnoses: None Author: DO Costa Franklin J Visit Information Visit type: Scheduled follow-up. Chief Complaint 06/02/2024 08:56 EDT 6 month f/u - discuss lab work. flu/covid vaccine History of Present Illness Here for 6 month follow up. Overall, doing well. Has some questions regarding immunizations which we discussed. Spending a lot of time at [place]. His A1c is significantly improved, from 7.5% to 6.1%. We had added glipizide at his last visit; youwould think he had made some diet changes given with significant improvement, but really nothing hecan point to. I suspect he is a bit more active in the summer, so this may have played a role. His weight, compared to last visit, is essentially the same. He did have some elevated LFTs -and his LDL was quite low on high-dose atorvastatin. We reduced hisatorvastatin from 80 mg to 40 mg; his LDL still at goal, and his LFTs have normalized (with the exception of an elevated total bilirubin consistent with his previous diagnosis of Gilbert's). Review of Systems Eye: Negative. Ear/Nose/Mouth/Throat: Negative. Respiratory: No shortness of breath, No cough. Cardiovascular: Negative. Gastrointestinal: No nausea, No vomiting, No diarrhea, No constipation, No heartburn. Neurologic: Alert and oriented X4. Health Status Allergies: Allergic Reactions (Selected) NKA. Current medications: (Selected) Prescriptions Prescribed MetFORMIN (Eqv-Glucophage XR) 500 mg oral tablet, extended release: 1 tab, PO, Daily, 90 tab, 3 Refill(s) Vitamin D3 5000 intl units oral capsule: 1 cap, PO, Daily, 100 cap allopurinol 300 mg oral tablet: 1 tab, PO, Daily, 90 tab, 3 Refill(s) atorvastatin 40 mg oral tablet: 1 tab, PO, qhs, for 90 day, 90 tab, 3 Refill(s) diclofenac 1% topical gel: 1 appl, topical, bid, for 10 day, PRN: Pain, 100 g glipiZIDE 10 mg oral tablet, extended release: 1 tab, PO, Daily, for 90 day, 90 tab, 3 Refill(s) irbesartan 75 mg oral tablet: 1 tab, PO, Daily, 90 tab, 3 Refill(s) omeprazole 40 mg oral delayed release capsule: 1 cap, PO, Daily, 90 cap, 3 Refill(s) Documented Medications Documented aspirin: 81 mg, Daily. Problem list: Medical Adult BMI > 30 / SNOMED CT 066436723 / Confirmed BPH - Benign prostatic hypertrophy / SNOMED CT 311086438 / Confirmed Current use of proton pump inhibitor / SNOMED CT 078168480 / Confirmed Diabetes / SNOMED CT 097269268 / Confirmed Discomfort of right groin / SNOMED CT 521104257 / Confirmed Diverticulosis / ICD-9-CM 562.10 / Confirmed Family history of esophageal cancer / SNOMED CT 0896773066 / Confirmed Family history of gastric cancer / SNOMED CT 079428633 / Confirmed GERD / ICD-9-CM 530.81 / Confirmed Gilbert's syndrome / ICD-9-CM 277.4 / Confirmed HBP (high blood pressure) / SNOMED CT 9800086245 / Confirmed History of renal stone / SNOMED CT 4624029781 / Confirmed Hypoalbuminemia / ICD-9-CM 273.8 / Confirmed KIDNEY STONES / ICD-9-CM 788.0 / Confirmed Lipoma / ICD-9-CM 214.9 / Confirmed LIPOPROTEIN DEFICIENCIES / ICD-9-CM 272.5 / Confirmed MIXED HYPERLIPIDEMIA / ICD-9-CM 272.2 / Confirmed PERSONAL HISTORY OF COLONIC POLYPS / ICD-9-CM V12.72 / Confirmed Schatzki's ring / ICD-9-CM 750.3 / Confirmed Skin tag / SNOMED CT 497489020 / Confirmed Tubular adenoma / ICD-9-CM 229.9 / Confirmed URIC ACID NEPHROLITHIASIS / ICD-9-CM 274.11 / Confirmed Vitamin D deficiency / ICD-9-CM 268.9 / Confirmed Weight disorder / SNOMED CT 214606989 / Confirmed All Problems Adult BMI > 30 / SNOMED CT 872583262 / Confirmed BPH - Benign prostatic hypertrophy / SNOMED CT 014029638 / Confirmed Current use of proton pump inhibitor / SNOMED CT 166642957 / Confirmed Diabetes / SNOMED CT 284554421 / Confirmed Discomfort of right groin / SNOMED CT 095507565 / Confirmed Diverticulosis / ICD-9-CM 562.10 / Confirmed Family history of esophageal cancer / SNOMED CT 5069678682 / Confirmed Family history of gastric cancer / SNOMED CT 363086572 / Confirmed GERD / ICD-9-CM 530.81 / Confirmed Gilbert's syndrome / ICD-9-CM 277.4 / Confirmed HBP (high blood pressure) / SNOMED CT 5028770382 / Confirmed History of renal stone / SNOMED CT 6960479461 / Confirmed Hypoalbuminemia / ICD-9-CM 273.8 / Confirmed KIDNEY STONES / ICD-9-CM 788.0 / Confirmed Lipoma / ICD-9-CM 214.9 / Confirmed LIPOPROTEIN DEFICIENCIES / ICD-9-CM 272.5 / Confirmed MIXED HYPERLIPIDEMIA / ICD-9-CM 272.2 / Confirmed PERSONAL HISTORY OF COLONIC POLYPS / ICD-9-CM V12.72 / Confirmed Schatzki's ring / ICD-9-CM 750.3 / Confirmed Skin tag / SNOMED CT 454560385 / Confirmed Tubular adenoma / ICD-9-CM 229.9 / Confirmed URIC ACID NEPHROLITHIASIS / ICD-9-CM 274.11 / Confirmed Vitamin D deficiency / ICD-9-CM 268.9 / Confirmed Weight disorder / SNOMED CT 135303435 / Confirmed. Histories Family History: Mesothelioma Paternal Uncle () Comments: 12/18/2011 13:35 MARICHUY Garcia MD, Paddy Lei from asbestos exposure Cancer of stomach Paternal Uncle GERD - Gastro-esophageal reflux disease Brother (claude) Diabetes PGF () [place] (myocardial infarction) MGF Esophageal cancer.. Father () Vertigo... Mother . 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 [place] Exercise 01/09/2013 Risk Assessment: Regular exercise 07/27/2018 Duration (average number of minutes): 60 Times per week: Daily Exercise type: Walking, racquetball 2 d/weeks Comment: work - 01/09/2013 14:44 - MD Garcia Jonathan D; hunting, climbing the [employer] - 07/27/2018 11:24 - MD Garcia Jonathan D Home/Environment 04/26/2015 Lives with: Spouse Living situation: Home/Independent Substance Abuse 02/07/2014 Risk Assessment: Denies Substance Abuse Tobacco 12/18/2011 Risk Assessment: Denies Tobacco Use 12/18/2011 Use: Never smoker . Physical Examination Vital Signs 06/02/2024 08:58 EDT Heart Rate 84 bpm Systolic Blood Pressure 132 mmHg Diastolic Blood Pressure 80 mmHg Cuff Pulse Pressure 52 mmHg SpO2 97 % Measurements from flowsheet : Measurements 06/02/2024 08:59 EDT Osteoporosis Screening Tool 4.22 06/02/2024 08:58 EDT Patient Weight 90.1 kg Weight 90.100 kg Weight Method Standing Scale Height/Weight Refused Height/Weight Taken General: Alert and oriented. Neck: Supple, Non-tender. Respiratory: Lungs are clear to auscultation, Respirations are non-labored. Cardiovascular: Normal rate, Regular rhythm. Gastrointestinal: Soft, Non-tender, Non-distended, Normal bowel sounds, No organomegaly. Musculoskeletal Normal range of motion. Integumentary: Warm, Dry, [place]. Neurologic: Alert, Oriented, Normal sensory. Cognition and Speech: Oriented, Speech clear and coherent. Psychiatric: Cooperative, Appropriate mood & affect. Health Maintenance Health Maintenance Pending (in the next year) OverDue Medicare Annual Wellness Visit due 09/16/21 and every 1 year Adult Influenza Vaccine due 03/05/24 and every 1 year Due Adult COVID-19 Vaccination due 06/02/24 Unknown Frequency Adult Social Determinants of Health Screening due 06/02/24 Unknown Frequency Pneumococcal Vaccine Older Adults due 06/02/24 One-time only Due In Future Diabetic Eye Exam not due until 08/16/24 and every 366 day Diabetes Management A1c not due until 05/31/25 and every 366 day Satisfied (in the past 1 year) Satisfied Body Mass Index on 01/06/24. Satisfied by MEREDITH Romero Alexandra Diabetes Management A1c on 05/30/24. Satisfied by [employer], [employer] Lipid Screening on 05/30/24. Satisfied by [employer], [employer] Review / Management Results review: Lab results 05/30/2024 08:44 EDT Na 142 mmol/L K 4.4 mmol/L Cl- 107 mmol/L HCO3 30 mmol/L Anion Gap 5 mmol/L BUN 21 mg/dL HI Cret 1.09 mg/dL eGFR CKD-EPI 73 mL/min/1.73 m2 Glu 134 mg/dL HI Ca 9.3 mg/dL ALT 41 unit/L T Bili 1.8 mg/dL HI Alk Phos 124 unit/L AST 39 unit/L Alb 3.9 g/dL Prot 7.0 g/dL Chol 123 mg/dL LOW LDL Chol, Calculated 66 mg/dL HDL 33 mg/dL LOW Non-HDL 90 mg/dL Chol/HDL 4 TG 122 mg/dL HbA1c 6.1 % HI Estimated Average Glucose 128 mg/dL Uric Acid 3.8 mg/dL . Impression and Plan Diagnosis HBP (high blood pressure) ([id number] I10, Discharge, Medical). Gilbert's syndrome (DPR62-NJ E80.4, Discharge, Medical). MIXED HYPERLIPIDEMIA (HOQ99-QB E78.2, Discharge, Medical). Diabetes (IMD47-IS E11.9, Discharge, Medical). Plan: Diabetes (Chronic/not at goal) A1c with marked improvement Continue glipizide to 10 mg extended release in a.m. Continue metformin 500 mg in p.m. Recheck A1c in 6 months HTN (Chronic/controlled) Controlled Continue irbesartan 75 mg daily BMP shows normal renal function and serum potassium Recheck blood pressure in 6 months Hyperlipidemia (Chronic/controlled) LDL still at goal with lower statin dose Continue atorvastatin 40 mg Recheck lipid profile in 6 months Elevated LFTs/Gilbert's (stable) LFTs returned to normal with lower dose of atorvastatin Mild stable elevation of total bilirubin consistent with Gilbert's Right upper quadrant ultrasound (2022) showed no hepatic abnormalities Previous dedicated pelvic ultrasound demonstrated some steatohepatitis, otherwise normal Recheck CMP in 6 months GERD (controlled) Continue omeprazole Refill provided Gout (controlled) Refill allopurinol Uric acid at goal. Orders Order Profile (Selected) Outpatient Orders Completed Outpatient Visit Est Lvl 3: CMP Request: Follow Up Appointment Ambulatory: Hemoglobin A1C Request: Lipid Profile Request: . Electronic Signature on File Electronically Reviewed/Signed by: Jose Antonio Costa DO Author Signature Dt/Tm:06/02/2024 09:43 AM Department of Family Medicine [facility] Patient Care team information Care Team Personnel Name: MD Jose, Paddy Lei Position: Physician - Family Med Member Role: Lifetime Relationship Address: [address] [place] [address] [place] Name: DO Costa Franklin J Position: Physician - Family Med Member Role: Primary Care Provider Address: [address] [place] [address] [place] Care Team Related Persons Name: ATIYA GIRON Name: ELYSIA GIRON
--- OUTSIDE RECORDS SUMMARY | 2024-10-14 01:26 | External Medical Summary | Continuity of Care Document ---
Author Name Unknown Organization [facility] [address] [place] [id number] Care Team Providers Care Rn Social Services Name Role Phone Dinorah Kaur Primary Care Physician [phone] Encounter [facility] [id number] Date(s): 09/21/24 - 09/21/24 [facility] [address] [facility] 207 [facility] Medical [facility] [address] [address] [phone] Encounter Diagnosis Lower respiratory infection(Discharge Diagnosis) - 09/21/24 Discharge Disposition: Home or Self Care Attending Physician: DO John Jona M Allergies, Adverse Reactions, Alerts No Known Allergies Assessment and Plan Extracted from: Title:Office Visit Note: Cough Author:DO Kaur Paige M Date:09/21/24 1.Lower respiratory infect ion Acute, uncomplicated illness/injury Goal: Resolution Data: N/A Plan: Vitalsignswithin normal limits. Will treat with doxycycline 100mg BID x5 days for coverage of atypical pneumonia. Discuss red flag symptoms that would indicate need for re-evaluation. Patient in agreement with plan. Immunizations Given and Recorded Vaccine Date Status Refusal Reason SARS-CoV-2 mRNA (Pfizer 12+) bivalent 07/17/22 Rec orded SARS-CoV-2 (COVID-19) [...] bid, Disp# 100 g, PRN: Pain, Pharmacy: [facility] #[id number] Start Date: 08/06/23 Stop Date: 08/16/23 Status: Ordered doxycycline hyclate 100 mg oral capsule Start: 09/21/24 8:56:00 AM EST, 1 cap, PO, bid, Disp# 10 cap, may take with food to minimize abdominal discomfort, Pharmacy: [facility]/pharmacy #[id number] Start Date: 09/21/24 Stop Date: 09/26/24 Status: Ordered glipiZIDE 10 mg oral tablet, [...] Start Date: 12/18/11 Status: Ordered Mental Status 09/21/24 Barriers to Learning one year None evide nt Mandatory Health Literacy Documentation Yes Health Literacy Communication Barriers N ever Primary Language Ukrainian Problem List Condition Confirmation Course Effective Dates [...] passed spontaneously 5right medial leg 6tubular adenoma 79034 8by EGD Diagnosis Diagnosis Type Effective Dates Health Status Clinical Service Informant Lower respiratory infection Discharge Diagnosis 09/21/24 Non-Specified Procedures Procedure Date Related Diagnosis Body [...] Most recent to oldest [Reference Range]: 1 Height 177.8 cm (09/21/24 8:28 AM) Patient Weight 90.5 kg (09/21/24 8:28 AM) Body Mass Index 28.63 kg/m2 (09/21/24 8:28 AM) Heart Rate 68 bpm (09/21/24 8:28 AM) Respiratory Rate 18 br/min (09/21/24 8:28 AM) Blood Pressure 120/76mmHg (09/21/24 8:28 AM) Cuff Pulse Pressure 44 mmHg (09/21/24 8:28 AM) Social History Social History Type Response Smoking Status Never smoked cigaret alysa Sex Male Sex Representation Male (finding) FCM Outpt Note * MD Briscoe Amy L: MODIFY MD Briscoe Amy L: MODIFY Event Display: FCM Outpt Note Authored Date: [id number] Chief Complaint was recently on vacation in [place], came home with a cold. symptoms include cough. has pneumonia. History of Present Illness Sonia is a 69 year-old male who presents today for concern of ongoing cough. [place] started to get sick after returning from trip. - Onset: Two nights ago was coughing more at night - Cough: Yes, ongoing. Somewhat productive, coughed up some yellow mucus this morning - Fever: One day with fever last Wednesday - Sinus Pain/Pressure - Nausea/Emesis: No - Diarrhea: No - Fatigue: No - Treatments: No Denies chest pain, shortness of breath Med Changes: None Allergies: Reviewed Physical Exam Vitals & Measurements HR:68(Monitored) RR:18 BP:120/76 SpO2:98% HT:177.8cm WT:90.5kg WT:90.500kg(Dosing) BMI:28.63 PHQ2 Data(Data Documented on:09/21/2024 08:27) Emotional health assessment NEGATIVE General: NAD, well appearing, alert, interactive HEENT: NC/AT,patent nares, MMM - Oropharynx: no erythema, no tonsillar exudate or hypertrophy - TM: clear,nonbulging Respiratory: Non-labored, right LL with course lung sounds Cardiovascular: RRR, normal S1/S2, no murmur/rubs/gallops Assessment/Plan 1.Lower respiratory infection Acute, uncomplicated illness/injury Goal: Resolution Data: N/A Plan: Vitalsignswithin normal limits. Will treat with doxycycline 100mg BID x5 days for coverage of atypical pneumonia. Discuss red flag symptoms that would indicate need for re-evaluation. Patient in agreement with plan. Attestation Attestation -I discussed and evaluated this patient with Dr. Kaur. His lung exam shows only coarse breath sounds with few scattered end- expwheezing. The assessment and plan was developedwith her and carried out at my direction. I have read and agree with her note. Problem List/Past Medical History Ongoing Adult BMI > 30 BPH - Benign prostatic hypertrophy Current use of proton pump inhibitor Diabetes Discomfort of right groin Diverticulosis Family history of esophageal cancer Family history of gastric cancer GERD Gilbert's syndrome HBP (high blood pressure) History of renal stone Hypoalbuminemia KIDNEY STONES Lipoma LIPOPROTEIN DEFICIENCIES MIXED HYPERLIPIDEMIA PERSONAL HISTORY OF COLONIC POLYPS Schatzki's ring Skin tag Tubular adenoma URIC ACID NEPHROLITHIASIS Vitamin D deficiency Weight disorder Resolved HYPERCALCEMIA Procedure/Surgical History Ultrasound scan of abdomen, right upper quadrant and epigastrium| Service Date: 2Colonoscopy| Service Date: 06/13/2020Colonoscopy| Service Date: 06/12/2015EGD: normal| Service Date: 06/10/2011colonoscopic polypectomy| Service Date: 08/20/2010colonoscopy and 2 adenomectomies| Service Date: 08/19/2009Colonoscopy| Service Date: 06/07/2007EGD, esoph. dilation (schatzki ring)Extraction of wisdom tooth Medications allopurinol(allopurinol 300 mg oral tablet), 300 mg= 1 tab, PO, Daily, 3 refills aspirin, 81 mg, Daily atorvastatin(atorvastatin 40 mg oral tablet), 40 mg= 1 tab, PO, qhs, 3 refills cholecalciferol(Vitamin D3 5000 intl units oral capsule), 1 cap, PO, Daily, 30 refills diclofenac topical(diclofenac 1% topical gel), 1 appl, topical, bid, PRN doxycycline(doxycycline hyclate 100 mg oral capsule), 100 mg= 1 cap, PO, bid glipiZIDE(glipiZIDE 10 mg oral tablet, extended release), 10 mg= 1 tab, PO, Daily, 3 refills irbesartan(irbesartan 75 mg oral tablet), 75 mg= 1 tab, PO, Daily, 3 refills metFORMIN(MetFORMIN (Eqv-Glucophage XR) 500 mg oral tablet, extended release), 500 mg= 1 tab, PO, Daily, 3 refills omeprazole(omeprazole 40 mg oral delayed release capsule), 40 mg= 1 cap, PO, Daily, 3 refills Allergies NKA Social History Smoking Status Never smoked cigarettes Alcohol - Denies Alcohol Use Employment/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 Diabetes: PGF. Esophageal cancer..: Father. GERD - Gastro-esophageal reflux disease: Brother. NH (myocardial infarction): MGF. Mesothelioma: Paternal Uncle. Vertigo...: Mother. Health Status Family Member(s) Son: History is negative Son: History is negative Family Member(s) Relationship: Father, Age: 56 Years, Cause: esophagus cancer; non-moker; non-smoker Relationship: Paternal Uncle, Age: 62 Years, Cause: mesothelioma Relationship: PGF, Age: 55 Years, Cause: cancere, unknown type Immunizations Vaccine Date Status SARS-CoV-2 mRNA (Pfizer 12+) bivalent 07/17/2022 Recorded SARS-CoV-2 (COVID-19) mRNA BNT-162b2 vax 07/16/2021 Recorded influenza virus vaccine, inactivated 05/19/2021 Given SARS-CoV-2 (COVID-19) mRNA BNT-162b2 vax 12/14/2020 Recorded SARS-CoV-2 (COVID-19) mRNA BNT-162b2 vax 11/23/2020 Recorded pneumococcal 13-valent vaccine 09/16/2020 Given tetanus/diphtheria/pertuss, acel (Tdap) 09/16/2020 Recorded influenza virus vaccine, inactivated 07/17/2020 Given zoster vaccine, inactivated 12/08/2019 Recorded Comments : 2020-01-03: Historical information-source unspecified zoster vaccine, inactivated 10/06/2019 Recorded influenza virus vaccine, inactivated 05/30/2019 Given influenza virus vaccine, inactivated 05/19/2018 Given influenza virus vaccine, inactivated 05/13/2017 Given influenza virus vaccine, inactivated 07/13/2016 Given zoster vaccine live 05/16/2015 Given influenza virus vaccine, inactivated 05/16/2015 Given influenza virus vaccine, inactivated 06/21/2013 Recorded influenza virus vaccine, inactivated 06/08/2012 Recorded tetanus/diphtheria/pertuss, acel (Tdap) 05/29/2011 Given tetanus/diphtheria/pertuss, acel (Tdap) 11/19/2005 Recorded hepatitis B adult vaccine 10/21/1997 Recorded hepatitis B adult vaccine 05/11/1997 Recorded hepatitis B adult vaccine 04/18/1997 Recorded Recommendations Health Maintenance Pending(in the next year) OverDue Medicare Annual Wellness Visit due09/16/21and every 1year Adult Influenza Vaccine due03/06/24and every 1year Due Diabetic Eye Exam due08/16/24and every 366day Adult COVID-19 Vaccination due09/21/24Unknown Frequency Adult Social Determinants of Health Screening due09/21/24Unknown Frequency Pneumococcal Vaccine Older Adults due09/21/24One-time only Due In Future Diabetes Management A1c not due until05/31/25and every 366day Colorectal Cancer Screening not due until06/13/25and every 5year Satisfied(in the past 1 year) Satisfied Body Mass Index on09/21/24.Satisfied by MEREDITH Abbasi Kyla Diabetes Management A1c on05/30/24.Satisfied by Contributor_system, [email or web address] Lipid Screening on05/30/24.Satisfied by Contributor_system, [email or web address] Electronic Signature on File Electronically Reviewed/Signed by: Dinorah Kaur Author Signature Dt/Tm:09/21/2024 09:00 AM Resident Department of Family Medicine Electronically Reviewed/Signed by: Yeni Briscoe MD Cosigner Signature Dt/Tm: 09/22/2024 09:05 PM Technical Support Analyst [facility] [address] [place] [address] PMW Patient Care team information Care Team Personnel Name: MD Garcia Jonathan D Position: Physician - Family Med Member Role: Lifetime Relationship Address: [address] [place] [id number] [place] Name: DO Kaur Paige M Position: Resident Member Role: Primary Care Provider Address: [address] [place] [phone] [place] Care Team Related Persons Name: ATIYA GIRON Name: ELYSIA GIRON"
--- OUTSIDE RECORDS SUMMARY | 2024-10-14 01:27 | External Medical Summary | Continuity of Care Document ---
Author Name Unknown Organization [facility] [address] [place] [address] Address [address] [place], [place] [id number] Care Team Providers Care Mechanical Expert Name Role Phone Jose Antonio Costa Primary Care Physician [phone] [id number] Date[facility]s): 05/30/24 - 05/30/24 [facility] [address] [place] [facility] 303 [facility] 1 [place], [phone] Encounter Diagnosis Essential (primary) hypertension(Final) - Hyperlipidemia, unspecified(Final) - Discharge Disposition: Home or Self Care Attending Physician: DO Costa Franklin J Referring Physician: DO Costa Franklin J Allergies, Adverse Reactions, Alerts No Known Allergies Immunizations Given and Recorded Vaccine Date Status [...] 100 g, PRN: Pain, Pharmacy: [facility] #[id number] Start Date: 08/06/23 Stop Date: 08/16/23 Status: [...] to patient Start Date: 12/18/11 Status: Ordered Problem List Condition Confirmation Course Effective Dates [...] passed spontaneously 5right medial leg 6tubular adenoma 25392 8by EGD Procedures Procedure Date Related Diagnosis Body Site [...] 7tubular adenomas 82 tubular adenomas 9x 3 Results Laboratory List Name Date Comprehensive Metabolic Panel (COMP META B PANEL) 05/30/24 Hemoglobin A1C (HEMOGLOBIN, A1C) 05/30/24 Lipid Profile (LIPOPROTEINS) 05/30/24 Uric Acid Level (URIC ACID) 05/30/24 Most recent to oldest [Reference Range]: 1 eGFR CKD-EPI [>60 mL/min/1.73 m2] 73 mL/ min/1.73 m2 1 (05/30/24 8:44 AM) Estimated Average Glucose 128 mg/dL 2 (05/30/24 8:44 AM) Non-HDL 90 mg/dL 3 (05/30/24 8:44 AM) Estimated CrCl 72.36 mL/min (05/30/24 9:26 AM) Anion Gap [5-14 mmol/L] 5 mmol/L (05/30/24 8:44 AM) Alb [3.5-5.0 g/dL] 3.9 g/dL (05/30/24 8:44 AM) Alk Phos [38-126 unit/L] 124 unit/L (05/30/24 8:44 AM) ALT [<50 unit/L] 41 unit/L (05/30/24 8:44 AM) AST [15-46 unit/L] 39 unit/L (05/30/24 8:44 AM) BUN [7-20 mg/dL] 21 mg/dL *HI* (05/30/24 8:44 AM) Ca [8.4-10.2 mg/dL] 9.3 mg/dL (05/30/24 8:44 AM) Chol/HDL 4 (05/30/24 8:44 AM) Chol [125-200 mg/dL] 123 mg/dL *LOW* (05/30/24 8:44 AM) Cl- [96-107 mmol/L] 107 mmol/L (05/30/24 8:44 AM) HCO3 [22-30 mmol/L] 30 mmol/L (05/30/24 8:44 AM) Cret [0.70-1.30 mg/dL] 1.09 mg/dL (05/30/24 8:44 AM) HbA1c [4.0-6.0 %] 6.1 % *HI* (05/30/24 8:44 AM) Glu [74-106 mg/dL] 134 mg/dL *HI* (05/30/24 8:44 AM) HDL [>35 mg/dL] 33 mg/dL *LOW* (05/30/24 8:44 AM) K [3.5-5.1 mmol/L] 4.4 mmol/L (05/30/24 8:44 AM) LDL Chol, Calculated [50-130 mg/dL] 66 m g/dL (05/30/24 8:44 AM) Na [137-145 mmol/L] 142 mmol/L (05/30/24 8:44 AM) T Bili [0.2-1.3 mg/dL] 1.8 mg/dL *HI* (05/30/24 8:44 AM) Prot [6.3-8.2 g/dL] 7.0 g/dL (05/30/24 8:44 AM) TG [<200 mg/dL] 122 mg/dL (05/30/24 8:44 AM) Uric Acid [3.5-8.5 mg/dL] 3.8 mg/dL 4 (05/30/24 8:44 AM) 1Result Comment: Testing Performed By: Dept of [facility]ology [facility] [address], [address], [place] [address] 2Result Comment: Testing Performed By: Dept of Pathology [facility] [address], [place] [address] 3Result Comment: Testing Performed By: Dept of Pathology [facility] [address], [address], [place] [address] 4Result Comment: Testing Performed By: Dept of Pathology [facility] [address], [address], [place] [address] Social History Social History Type Response Smoking Status Never smoked cigaret alysa Sex Male Sex Representation Male (finding) Patient Care team information Care Team Personnel Name: MD Garcia Jonathan D Position: Physician - Family Med Member Role: Lifetime Relationship Address: [address] [place] [address] [place] Name: DO Costa Franklin J Position: Physician - Family Med Member Role: Primary Care Provider Address: [address] [place] [address] [place] Care Team Related Persons Name: ATIYA GIRON Name: ELYSIA GIRON
[2024-10-14] MEDS ORDERED: Patient's ALLERGY Info needs ENTERED STA (02:49)
--- NOTE | 2024-10-14 02:52 | History & Physical Report ---
Date of Service October 14, 2024 Assessment & Plan (1) Syncope: (2) T2DM (type 2 diabetes mellitus): (3) GERD (gastroesophageal reflux disease): (4) HTN (hypertension): (5) HLD (hyperlipidemia): (6) Gilbert syndrome: (7) Transaminitis: Plan 69 yo male PMHx T2DM not on insulin, GERD, HTN, HLD, Gilbert syndrome admitted with syncope. This evening he was playing cards and suddenly slumped over forward and then leaned back and vomited. He has no recollection of the events #Syncope Head imaging without acute pathology or vascular compromise EKG with bifascicular block, this is new compared to EKG obtained through [facility] system which showed RBBB and sinus bradycardia in 2020 Monitor on telemetry Obtain TTE Infectious cause unlikely but given enteritis will obtain stool PCR UA negative Plasmalyte at 80cc/hr #Transaminitis/Elevated Bilirubin Bilirubin accounted for by Gilbert syndrome AST/ALT/Alk phos elevation unclear etiology History of intermittently elevated transaminases per [facility] record Repeat CMP in am Consider liver US, will add hepatitis panel #T2DM Last A1c in 05/2024 6.1, repeat on admission Continue metformin and glipizide #GERD Protonix while admitted #HTN Losartan while admitted #HLD Continue atorvastatin FENGI: plasmalyte @80/hr, heart healthy/T2DM Code status: full DVT prophylaxis: lovenox Isolation: none Disposition: med/tele History of Present Illness Primary Care Provider: Jose Antonio Costa, DO 69 yo male PMHx T2DM not on insulin, GERD, HTN, HLD, Gilbert syndrome admitted with syncope. This evening he was playing cards and suddenly slumped over forward and then leaned back and vomited. He has no recollection of the events. Ultimately he regained consciousness and returned to his baseline mentation as short time later. He has never had a similar episode in the past. He was in his usual state of health until this event. He denies lightheadedness, dizziness, palpitations, SOB, N/V/D, changes in stool quality or consistency prior to the event. He does endorse nonspecific abdominal pain. He has no history of cardiac or neurologic pathology. He had a subsequent episode of vomiting in the ED At the present time he denies SHEPARD, dizziness, CP, SOB, N/V/D. Endorses ongoing n onspecific abdominal pain. ED Course: EKG remarkable for bifascicular block, NSR CXR without pathology Mild leukocytosis, transaminitis; labs otherwise unremarkable, negative UA Neuro imaging - head ct, head and neck CTA negative Abdominal CT - small bowel mild wall thickening consistent with nonspecific enteritis; small hiatal hernia; few sigmoid diverticuli w/o diverticulitis Received Pepcid, Zofran, 1L NSS Allergies Allergy/AdvReac Type Severity Reaction Status Date / Time No Known Allergies Allergy Verified 10/14/24 03:15 Home Medications Medication Instructions Recorded Confirmed Type allopurinol 300 mg tablet 300 mg DAILY 10/14/24 10/14/24 History aspirin 81 mg tablet 81 mg PO DAILY 10/14/24 10/14/24 History atorvastatin 40 mg tablet 40 mg HS 10/14/24 10/14/24 History glipizide 10 mg tablet, extended 10 mg PO DAILY 10/14/24 10/14/24 History release 24 hr irbesartan 75 mg tablet 75 mg DAILY 10/14/24 10/14/24 History metformin 500 mg tablet,extended 500 mg PO DAILY 10/14/24 10/14/24 History release 24 hr omeprazole 40 mg capsule,delayed 40 mg DAILY 10/14/24 10/14/24 History release omeprazole 40 mg capsule,delayed 40 mg DAILY 10/14/24 10/14/24 History release Past Med/Surg History Problem List Transaminitis Gilbert syndrome HLD (hyperlipidemia) HTN (hypertension) GERD (gastroesophageal reflux disease) T2DM (type 2 diabetes mellitus) Syncope Social History Smoking Status: Never smoker Preferred Language: Maltese Feels Safe at Home: Yes Review of Systems Review of Systems: reviewed, per HPI Physical Exam Physical Exam: Constitutional: well-appearing, no acute distress HEENT: NCAT, no conjunctival injection CV: regular rhythm, extremities well-perfused, no LE edema Resp: no increased work of breathing GI: soft, nondistended, mild non localized tenderness MSK: no gross deformities appreciated Skin: warm, dry, no rash appreciated Neuro: alert, oriented, no focal neurologic deficit appreciated Results & Data Results & Data Vital Signs (Past 12 Hours) Vital Signs Temp Pulse Pulse Resp BP BP Pulse Ox 10/14/24 01:56 88 10/14/24 01:43 88 18 136/78 95 10/13/24 23:31 82 18 137/87 93 10/13/24 22:03 96 10/13/24 22:01 36.3 C L 70 18 172/91 H 96 10/13/24 21:59 68 O2 Del Method 10/14/24 01:56 10/14/24 01:43 Room Air 10/13/24 23:31 Room Air 10/13/24 22:03 Room Air 10/13/24 22:01 Room Air 10/13/24 21:59 Laboratory Results Laboratory Results WBC 12.89 K/ul (4.8-10.8) H 10/13/24 21:57 RBC 5.37 M/uL (4.70-6.10) 10/13/24 21:57 Hgb 16.8 g/dl (14.0-18.0) 10/13/24 21:57 Hct 47.4 % (42.0-52.0) 10/13/24 21:57 MCV 88.3 fL (80.0-100.0) 10/13/24 21:57 MCH 31.3 pg (25.0-34.0) 10/13/24 21:57 MCHC 35.4 g/dL (32.0-36.0) 10/13/24 21:57 RDW Std Deviation 41.7 fL (36.4-46.3) 10/13/24 21:57 RDW Coeff of Yaw 13.0 % (11.5-14.5) 10/13/24 21:57 Plt Count 156 K/uL (130-400) 10/13/24 21:57 MPV 9.6 fL (9.4-12.4) 10/13/24 21:57 Immature Gran % (Auto) 0.5 % 10/13/24 21:57 Neut % (Auto) 78.9 % 10/13/24 21:57 Lymph % (Auto) 13.5 % 10/13/24 21:57 [place] % (Auto) 5.1 % 10/13/24 21:57 Eos % (Auto) 1.6 % 10/13/24 21:57 Baso % (Auto) 0.4 % 10/13/24 21:57 Neut # (Auto) 10.18 K/uL (1.40-6.50) H 10/13/24 21:57 Lymph # (Auto) 1.74 K/uL (1.20-3.40) 10/13/24 21:57 [place] # (Auto) 0.66 K/uL (0.11-0.59) H 10/13/24 21:57 Eos # (Auto) 0.20 K/uL (0.00-0.50) 10/13/24 21:57 Baso # (Auto) 0.05 K/uL (0.00-0.20) 10/13/24 21:57 Immature Gran # (Auto) 0.06 K/uL (0.01-0.20) 10/13/24 21:57 PT 11.0 Seconds (9.0-12.0) 10/13/24 21:57 INR 1.0 (0.9-1.1) 10/13/24 21:57 Sodium 141 mmol/L (136-145) 10/13/24 21:57 Potassium 3.8 mmol/L (3.5-5.1) 10/13/24 21:57 Chloride 104 mmol/L (98-107) 10/13/24 21:57 Carbon Dioxide 27 mmol/L (21-32) 10/13/24 21:57 Anion Gap 10 (3-11) 10/13/24 21:57 BUN 21 mg/dl (6-23) 10/13/24 21:57 Creatinine 1.11 mg/dl (0.6-1.4) 10/13/24 21:57 Est Cr Clr Drug Dosing 70.5 ml/min 10/13/24 21:57 eGFR 71.88 10/13/24 21:57 BUN/Creatinine Ratio 18.9 (10-20) 10/13/24 21:57 Glucose 170 mg/dl (70-99(Fasting)) H 10/13/24 21:57 Calcium 9.2 mg/dl (8.6-10.3) 10/13/24 21:57 Phosphorus 4.1 mg/dl (2.5-4.9) 10/13/24 21:57 Magnesium 1.9 mg/dl (1.7-2.4) 10/13/24 21:57 Total Bilirubin 1.9 mg/dl (0.2-1.0) H 10/13/24 21:57 Direct Bilirubin 0.3 mg/dl (0-0.2) H 10/13/24 21:57 AST 50 U/L (13-39) H 10/13/24 21:57 ALT 63 U/L (7-52) H 10/13/24 21:57 Alkaline Phosphatase 127 U/L (34-104) H 10/13/24 21:57 Total Creatine Kinase 82 U/L (30-223) 10/13/24 21:57 Troponin I High Sens 9.0 pg/ml (0-20) 10/13/24 21:57 Total Protein 7.5 gm/dl (6.0-8.3) 10/13/24 21:57 Albumin 4.2 gm/dl (3.4-5.0) 10/13/24 21:57 Globulin 3.3 gm/dl (2.5-4.0) 10/13/24 21:57 Albumin/Globulin Ratio 1.3 (0.9-2) 10/13/24 21:57 Lipase 21 U/L (11-82) 10/13/24 21:57 TSH 3.897 uIu/ml (0.300-4.500) 10/13/24 21:57 Urine Color Yellow 10/14/24 00:18 Urine Appearance Clear (Clear) 10/14/24 00:18 Urine pH 5.0 (4.5-7.5) 10/14/24 00:18 Ur Specific [place] > 1.045 (1.000-1.030) H 10/14/24 00:18 Urine Protein Negative (Negative) 10/14/24 00:18 Urine Glucose (UA) Negative (Negative) 10/14/24 00:18 Urine Ketones 1+ (Negative) H 10/14/24 00:18 Urine Blood Negative (Negative) 10/14/24 00:18 Urine Nitrite Negative (Negative) 10/14/24 00:18 Urine Bilirubin Negative (Negative) 10/14/24 00:18 Urine Urobilinogen Negative (Negative) 10/14/24 00:18 Ur Leukocyte Esterase Negative (Negative) 10/14/24 00:18 Adenovirus (PCR) Not Detected (NotDetected) 10/13/24 23:05 B. pertussis DNA (PCR) Not Detected (NotDetected) 10/13/24 23:05 B.parapertussis DNA PCR Not Detected (NotDetected) 10/13/24 23:05 C. pneumoniae DNA (PCR) Not Detected (NotDetected) 10/13/24 23:05 Coronavirus OC43 (PCR) Not Detected (NotDetected) 10/13/24 23:05 Coronavirus HKU1 (PCR) Not Detected (NotDetected) 10/13/24 23:05 Coronavirus 229E (PCR) Not Detected (NotDetected) 10/13/24 23:05 SARS-CoV-2 (PCR) Not Detected (NotDetected) 10/13/24 23:05 Coronavirus NL63 (PCR) Not Detected (NotDetected) 10/13/24 23:05 Human Metapneumovir PCR Not Detected (NotDetected) 10/13/24 23:05 Influenza Type A (PCR) Not Detected (NotDetected) 10/13/24 23:05 Influenza Type B (PCR) Not Detected (NotDetected) 10/13/24 23:05 M. pneumoniae (PCR) Not Detected (NotDetected) 10/13/24 23:05 Parainfluenza 1 (PCR) Not Detected (NotDetected) 10/13/24 23:05 Parainfluenza 2 (PCR) Not Detected (NotDetected) 10/13/24 23:05 Parainfluenza 3 (PCR) Not Detected (NotDetected) 10/13/24 23:05 Parainfluenza 4 (PCR) Not Detected (NotDetected) 10/13/24 23:05 RSV (PCR) Not Detected (NotDetected) 10/13/24 23:05 Entero/Rhino (PCR) Not Detected (NotDetected) 10/13/24 23:05 Impressions Chest X-Ray 10/13/24 22:03 Exam(s): XR CXR 1 VIEW EXAM: XR Chest, 1 View CLINICAL HISTORY: Reason for exam: syncope. TECHNIQUE: Frontal view of the chest. COMPARISON: No relevant prior studies available. FINDINGS: Lungs: No infiltrate. No atelectasis. No CHF. Pleural space: No pleural effusion. No pneumothorax. Heart: Unremarkable. No cardiomegaly. Mediastinum: Unremarkable. Normal mediastinal contour. Bones/joints: Unremarkable. No acute fracture. IMPRESSION: No acute abnormality. Electronically signed by: Zhang Olvera M.D. 10/14/24 00:51 AM Abdomen/Pelvis CT 10/13/24 22:51 Exam(s): CT ABDOMEN + PELVIS With Contrast IV Amt: 118 cc opti 320 EXAM: CT Abdomen and Pelvis With Intravenous Contrast CLINICAL HISTORY: Syncope, n/v. TECHNIQUE: Axial computed tomography images of the abdomen and pelvis with intravenous contrast. CTDI is 27.95 mGy and DLP is 1503.52 mGy-cm. Automated exposure control was utilized for the study. A dose lowering technique was utilized adhering to the principles of ALARA. CONTRAST: Patient received 118 cc opti 320 of IV contrast COMPARISON: No relevant prior studies available. FINDINGS: Lung bases: Unremarkable. No mass. No consolidation. ABDOMEN: Liver: Hypodense/fatty. No mass. Gallbladder and bile ducts: Unremarkable. No calcified stones. No ductal dilation. Pancreas: Partially fatty replaced. No mass. No ductal dilation. Spleen: Top normal spleen 12.8 cm length. Adrenals: Unremarkable. No mass. Kidneys and ureters: 2.4 cm cyst lower pole left kidney. No obstructive uropathy. No obstructing renal or ureteral calculi. No hydronephrosis or hydroureter. Stomach and bowel: Small hiatal hernia. Top normal caliber proximal to mid small bowel with mild wall thickening consistent with a nonspecific enteritis. Remainder of bowel is unremarkable without obstruction or ileus. Few sigmoid colon diverticuli without evidence for diverticulitis. PELVIS: Appendix: No findings to suggest acute appendicitis. Bladder: Unremarkable. No mass. Reproductive: Heterogeneous prostate gland with calcifications. ABDOMEN and PELVIS: Intraperitoneal space: No free air. No free fluid. Bones/joints: No acute fracture. Degenerative changes of the spine. Soft tissues: Unremarkable. Vasculature: Atherosclerotic vascular calcifications. No abdominal aortic aneurysm. Lymph nodes: Unremarkable. No enlarged lymph nodes. IMPRESSION: Top normal caliber proximal to mid small bowel with mild wall thickening consistent with a nonspecific enteritis. Small hiatal hernia. Few sigmoid colon diverticuli without evidence for diverticulitis. Electronically signed by: Zhang Olvera M.D. 10/14/24 00:[address] 10/13/24 22:51 Exam(s): CT HEAD Without Contrast EXAM: CT Head Without Intravenous Contrast CLINICAL HISTORY: Syncope, n/v. TECHNIQUE: Axial computed tomography images of the head/brain without intravenous contrast. CTDI is 35.37 mGy and DLP is 624.41 mGy-cm. Automated exposure control was utilized for the study. A dose lowering technique was utilized adhering to the principles of ALARA. COMPARISON: No relevant prior studies available. FINDINGS: Brain: Ventricles and sulci normal in size and configuration for age. No acute stroke. No acute hemorrhage. No abnormal extra-axial fluid collection. Ventricles: No hydrocephalus. No midline shift. Bones/joints: Unremarkable. No acute fracture. Soft tissues: Unremarkable. Sinuses: Completely opacified visualized left maxillary sinus. IMPRESSION: No acute intracranial abnormality. Electronically signed by: Zhang Olvera M.D. 10/14/24 00:12 AM Head CTA 10/13/24 22:51 Exam(s): CTA HEAD With Contrast IV Amt: 118 cc opti 320 EXAM: CT Angiography Head With Intravenous Contrast CLINICAL HISTORY: Syncope, n/v. TECHNIQUE: Axial computed tomographic angiography images of the head with intravenous contrast. CTDI is 69.04 mGy and DLP is 1171.09 mGy-cm. Automated exposure control was utilized for the study. A dose lowering technique was utilized adhering to the principles of ALARA. 3D and MIP reconstructed images were created and reviewed. CONTRAST: Patient received 118 cc opti 320 of IV contrast COMPARISON: CT Brain 10-13-2024. FINDINGS: Right internal carotid artery: No acute abnormality. Intracranial segment is patent with no significant stenosis. No aneurysm. Right anterior cerebral artery: Unremarkable. No occlusion or significant stenosis. No aneurysm. Right middle cerebral artery: Unremarkable. No occlusion or significant stenosis. No aneurysm. Right posterior cerebral artery: Unremarkable. No occlusion or significant stenosis. No aneurysm. Right vertebral artery: At this carotid calcifications of the right vertebral artery with intact distal runoff. Left internal carotid artery: No acute abnormality. Intracranial segment is patent with no significant stenosis. No aneurysm. Left anterior cerebral artery: Unremarkable. No occlusion or significant stenosis. No aneurysm. Left middle cerebral artery: Unremarkable. No occlusion or significant stenosis. No aneurysm. Left posterior cerebral artery: Unremarkable. No occlusion or significant stenosis. No aneurysm. Left vertebral artery: Unremarkable as visualized. Basilar artery: Unremarkable. No occlusion or significant stenosis. No aneurysm. IMPRESSION: No large vessel occlusion. Electronically signed by: Zhang Olvera M.D. 10/14/24 00:22 AM Neck CTA 10/13/24 22:51 Exam(s): CTA NECK With Contrast IV Amt: 118 cc opti 320 EXAM: CT Angiography Neck With Intravenous Contrast CLINICAL HISTORY: Syncope, n/v. TECHNIQUE: Routine carotid CT angiography protocol was performed with intravenous contrast. NASCET criteria using the distal ICAs for comparison were used for evaluation of stenoses. CTDI is 69.04 mGy and DLP is 1171.09 mGy-cm. Automated exposure control was utilized for the study. A dose lowering technique was utilized adhering to the principles of ALARA. 3D and MIP reconstructed images were created and reviewed. CONTRAST: Patient received 118 cc opti 320 of IV contrast COMPARISON: None. FINDINGS: VASCULATURE: Right common carotid artery: Unremarkable. No occlusion or significant stenosis. No dissection. Right internal carotid artery: Mild calcified plaque at the carotid bulb without a hemodynamically significant stenosis. No dissection. Right external carotid artery: Unremarkable. No occlusion. Right vertebral artery: Unremarkable. No occlusion or significant stenosis. No dissection. Left common carotid artery: Unremarkable. No occlusion or significant stenosis. No dissection. Left internal carotid artery: Mild calcified plaque at the carotid bulb without a hemodynamically significant stenosis. No dissection. Left external carotid artery: Unremarkable. No occlusion. Left vertebral artery: Unremarkable. No occlusion or significant stenosis. No dissection. NECK: Bones/joints: Degenerative changes of the spine. No acute fracture. Soft tissues: Unremarkable. Lung apices: Clear. CAROTID STENOSIS REFERENCE USING NASCET CRITERIA: % ICA stenosis = (1 - narrowest ICA diameter/diameter of distal cervical ICA) x 100. Mild - <50% stenosis. Moderate - 50-69% stenosis. Severe - 70-94% stenosis. Near occlusion - 95-99% stenosis. Occluded - 100% stenosis. IMPRESSION: No hemodynamically significant stenosis. Electronically signed by: Zhang Olvera M.D. 10/14/24 00:29 AM ECG Additional Comments: EKG with bifascicular block, no acute ischemic changes No arrhythmia noted on independent review of telemetry. Did have one PAC Code Status & VTE Plan VTE Prophylaxis Plan VTE Prophylaxis will be ordered: Yes Supervising Physician Co-Signing Physician Notes Patient seen and examined, chart reviewed, case discussed with Dr. Butterfield and I agree with the assessment and plan as above. In brief, patient is a 69yo male with history of DM, HTN presenting after a syncopal event at home. Patient with no prodromal symptoms, slumped forward and briefly lost consciousness. He does not have a history of syncope. No orthostatic symptoms. was recently ill with n/v/d. On exam patient is afebrile, HD stable Skin - no rash HEENT - dry MM Heart - +S1/S2, regular, no m/r/g Lungs - CTA Abd - soft, mildly tender diffusely with no rebound/guarding Ext - warm, well perfused Labs and images reviewed Troponin is unremarkable Assessment/Plan Syncope - -Check 2D echo -Telemetry monitoring -Continue Plasmalyte -Will check acute hepatitis panel -Repeat LFTs in AM -Consider liver imaging -Remainder as above Resident Activity Tracking Resident Involvement: Resident Care Provided Care Provided: Adult Hospital Medicine (1) Syncope Syncope type: unspecified Qualified Code(s): R55 - Syncope and collapse (2) T2DM (type 2 diabetes mellitus) Diabetes mellitus complication status: without complication Diabetes mellitus prison insulin use: without intermission coordinator use Qualified Code(s): E11.9 - Type 2 diabetes mellitus without complications (3) GERD (gastroesophageal reflux disease) Esophagitis presence: esophagitis presence not specified Qualified Code(s): K21.9 - Gastro-esophageal reflux disease without esophagitis (4) HTN (hypertension) Hypertension type: primary hypertension Qualified Code(s): I10 - Essential (primary) hypertension (5) HLD (hyperlipidemia) Hyperlipidemia type: mixed hyperlipidemia Qualified Code(s): E78.2 - Mixed hyperlipidemia
[2024-10-14] MEDS ORDERED: ONDANSETRON INJ 2 MG/ML 2 ML VIAL IV PRN (03:38)
[2024-10-14] MEDS ORDERED: ALUMINUM/MAGNESIUM SUSP 30 ML UDC PO PRN (03:38)
[2024-10-14] MEDS ORDERED: MAGNESIUM HYDROXIDE SUSP 30 ML UDC PO PRN (03:38)
[2024-10-14] MEDS ORDERED: POLYETHYLENE (MIRALAX) 17 GM PACK PO PRN (03:38)
[2024-10-14] MEDS: PLASMA-LYTE A 1,000 ML IV SCH (04:03)
--- NOTE | 2024-10-14 04:27 | Billing Data ---
Date of Service October 14, 2024 Coding Level of Care Code 21960 INT INP/OBS CARE
--- NOTE | 2024-10-14 06:57 | Hospitalist Progress Note ---
Date of Service October 14, 2024 Assessment & Plan (1) Syncope: (2) T2DM (type 2 diabetes mellitus): (3) GERD (gastroesophageal reflux disease): (4) HTN (hypertension): (5) HLD (hyperlipidemia): (6) Gilbert syndrome: (7) Transaminitis: Plan 69 yo male PMHx T2DM not on insulin, GERD, HTN, HLD, Gilbert syndrome admitted with syncope. #Syncope Head imaging without acute pathology or vascular compromise EKG with bifascicular block, this is new compared to EKG obtained through [facility] system which showed RBBB and sinus bradycardia in 2020 - continue monitoring on Tele until tomorrow 10/15/24, monitor for any arrhythmias, palpitations, lightheadedness, chest pain, or new re-syncope TTE 10/14/24 AM result pending Troponin 10/13/24: 9 Infectious cause unlikely but given enteritis will obtain stool PCR Continue Plasmalyte at 80cc/hr #bifascicular block - monitor on tele an additional 24hrs for 3rd degree AV block, for which he'd need pacing - TTE 10/14/24: result pending #Transaminitis/Elevated Bilirubin Bilirubin accounted for by Gilbert syndrome AST/ALT/Alk phos elevation unclear etiology History of intermittently elevated transaminases per [facility] record Repeat CMP in am Hepatitis panel pending #T2DM Last A1c in 05/2024 6.1 -> 8.0 on 10/14/24 Continue metformin and glipizide #GERD Protonix while admitted #HTN Losartan while admitted #HLD Continue atorvastatin FENGI: plasmalyte @80/hr, heart healthy/T2DM Code status: full DVT prophylaxis: lovenox Diet: heart healthy, DM2 Disposition: med/tele Admission and Anticipated Discharge Date Admission Date: October 14, 2024 Supervising Physician Co-Signing Physician Notes Attending attestation Pt seen and examined in concert with Dr. Pearl. In agreement with the documented findings as noted in the resident documentation with any exceptions or additions as noted here. No acute complaints nor recurrence of symptoms. Did report feeling somewhat off immediately prior to symptoms, spouse reports that he had minimal post-event confusion, though he did experience some urinary incontinence during the episode. On examination, S1/S2 nl RRR no MCG. CTAB. Abd NT/ND BS+ve. CNII-XII grossly intact as examined. VS as noted. EKG w/ noted bifasicular block 69 yo male PMHx T2DM not on insulin, GERD, HTN, HLD, Gilbert syndrome admitted with syncope. This evening he was playing cards and suddenly slumped over forward and then leaned back and vomited. He has no recollection of the events Syncopal episode with bifascicular block noted on recent EKG - TTE pending. Troponin WNL as noted. Continue hydration and monitor on telemetry. Else see resident documentation as noted. Martine Joon - goes by "Prasad" - was seen and evaluated this AM at bedside, patient in no distress, nontoxic appearance. States he slept well, denies any new lightheadedness, dizziness, vision changes, neck pain, headache, SOB, chest pain, or palpitation since coming to floor. Endorses the last thing he recalls prior to losing consciousness is they were talking while playing cards with and friends, then he woke up looking down at his cards on the floor. Per 's report, patient seemed to lean forward and backward a few times with his eyes open, but was unresponsive for about 3-5 minutes. Upon regaining consciousness he did throw up once with some bladder incontinence, then another emesis again in the ER - unclear if bloody or bilious due to contents which included salad, green and red vegetables included. He received 1L IV fluids, zofran, and pepcid before being put on an 80cc plasmalyte drip and taken to the floor. Patient denies any history of syncope, seizures, or arrhythmias, nor family history of them. had recent day-long illness of fever and diarrhea, but pt was not affected. Review of Systems Review of Systems: denies recent fever, body aches, chills, sweats, headache, neck pain, palpitations, vision changes, chest pain, abdominal pain Physical Exam Physical Exam: Constitutional: A&Ox3, well-appearing, no acute distress HEENT: NC/AT, PERRL b/l, no conjunctival injection CV: RRR, +s1/s2, no m/r/g; extremities well-perfused, no LE edema Resp: clear to auscultation b/l, no increased work of breathing GI: +BS, abdomen soft, nondistended, nontender to palpation MSK: 5/5 strength in all extremities, no gross deformities appreciated Skin: warm, dry, no rash Neuro: no facial droop, speech intact, no focal neurologic deficits appreciated - follows all movement-based commands wi th accuracy, intact heel-denis test b/l Results & Data Results & Data Vital Signs (Past 12 Hours) Vital Signs Temp Pulse Pulse Pulse Resp BP BP 10/14/24 04:09 97 H 10/14/24 03:31 36.9 C 81 18 144/85 H 10/14/24 02:33 90 20 139/94 10/14/24 02:03 89 20 140/84 10/14/24 01:56 88 10/14/24 01:43 88 18 10/13/24 23:31 82 18 10/13/24 22:03 10/13/24 22:01 36.3 C L 70 18 172/91 H 10/13/24 21:59 68 BP Pulse Ox O2 Del Method 10/14/24 04:09 10/14/24 03:31 95 Room Air 10/14/24 02:33 95 10/14/24 02:03 93 10/14/24 01:56 10/14/24 01:43 136/78 95 Room Air 10/13/24 23:31 137/87 93 Room Air 10/13/24 22:03 96 Room Air 10/13/24 22:01 96 Room Air 10/13/24 21:59 Resident Activity Tracking Resident Involvement: Resident Care Provided Care Provided: Adult Hospital Medicine (2) T2DM (type 2 diabetes mellitus) Diabetes mellitus complication status: without complication Diabetes mellitus detention insulin use: without detention use Qualified Code(s): E11.9 - Type 2 diabetes mellitus without complications (3) GERD (gastroesophageal reflux disease) Esophagitis presence: esophagitis presence not specified Qualified Code(s): K21.9 - Gastro-esophageal reflux disease without esophagitis (4) HTN (hypertension) Hypertension type: primary hypertension Qualified Code(s): I10 - Essential (primary) hypertension (5) HLD (hyperlipidemia) Hyperlipidemia type: mixed hyperlipidemia Qualified Code(s): E78.2 - Mixed hyperlipidemia
[2024-10-14] MEDS: glipiZIDE ER 2.5 MG TABCR PO SCH (08:45)
[2024-10-14] MEDS: ASPIRIN 81 MG ECTAB PO SCH (08:46)
[2024-10-14] MEDS: ENOXAPARIN INJ 40 MG/0.4 ML SYR SQ SCH (08:46)
[2024-10-14] MEDS: metFORMIN HCL ER 500 MG TABCR PO SCH (08:46)
[2024-10-14] MEDS: allopurinoL 300 MG TAB PO SCH (08:46)
[2024-10-14] MEDS: LOSARTAN POTASSIUM 25 MG TAB PO SCH (08:46)
[2024-10-14] MEDS: PANTOprazole 40 MG TAB PO SCH (08:46)
[2024-10-14] MEDS: ACETAMINOPHEN 500 MG TAB PO PRN (08:48)
[2024-10-14 09:42] LABS: Estimated Average Glucose 183 mg/dl
[2024-10-14 16:32] LABS: Adenovirus F 40/41 PCR Not Detected (NotDetected); Astrovirus PCR Not Detected (NotDetected); Campylobacter PCR Not Detected (NotDetected); Cryptosporidium PCR Not Detected (NotDetected); Cyclospora cayetanensis PCR Not Detected (NotDetected); Entamoeba histolytica PCR Not Detected (NotDetected); Enteroaggregative E.coli(EAEC) Not Detected (NotDetected); Enteropathogenic E.coli (EPEC) Not Detected (NotDetected); Enterotoxigenic E.coli (ETEC) Not Detected (NotDetected); Giardia lamblia PCR Not Detected (NotDetected); Plesiomonas shigelloides PCR Not Detected (NotDetected); Rotavirus A PCR Not Detected (NotDetected); Salmonella PCR Not Detected (NotDetected); Sapovirus PCR Not Detected (NotDetected); Shiga-like Toxin E.coli (STEC) Not Detected (NotDetected); Shigella/Enteroinvasive E.coli Not Detected (NotDetected); Vibrio cholerae PCR Not Detected (NotDetected); Vibrio species PCR Not Detected (NotDetected); Yersinia enterocolitica PCR Not Detected (NotDetected)
[2024-10-14 16:37] LABS: Norovirus GI/GII PCR DETECTED (NotDetected)
[2024-10-14] MEDS: ATORVASTATIN 40 MG TAB PO SCH (20:21)
--- NOTE | 2024-10-14 21:36 | XCELERA ---
[id number]\[id number]
[2024-10-15 03:27] VITALS: RESP 18
[2024-10-15 06:10] LABS: Basophils # (auto) 0.03 K/uL (0.00-0.20); Basophils % (auto) 0.5 %; Eosinophils # (auto) 0.11 K/uL (0.00-0.50); Eosinophils % (auto) 1.8 %; Hematocrit (blood only) 39.7 % (42.0-52.0); Hemoglobin 13.8 g/dl (14.0-18.0); Immature Granulocytes # (auto) 0.03 K/uL (0.01-0.20); Immature Granulocytes % (auto) 0.5 %; Lymphocytes # (auto) 1.47 K/uL (1.20-3.40); Lymphocytes % (auto) 23.4 %; Mean Corpuscular Hemoglobin 30.8 pg (25.0-34.0); Mean Corpuscular Hgb Conc 34.8 g/dL (32.0-36.0); Mean Corpuscular Volume 88.6 fL (80.0-100.0); Mean Platelet Volume 9.7 fL (9.4-12.4); Monocytes % (auto) 12.7 %; Neutrophils # (auto) 3.84 K/uL (1.40-6.50); Neutrophils % (auto) 61.1 %; Platelet Count 102 K/uL (130-400); RDW Coefficient of Variation 13.2 % (11.5-14.5); RDW Standard Deviation 42.8 fL (36.4-46.3); Red Blood Count 4.48 M/uL (4.70-6.10); White Blood Count 6.28 K/ul (4.8-10.8)
[2024-10-15 06:29] LABS: Albumin Globulin Ratio 1.3 (0.9-2); Albumin Level 3.2 gm/dl (3.4-5.0); BUN Creatinine Ratio 21.3 (10-20); Bilirubin,Total 2.1 mg/dl (0.2-1.0); Calcium 8.3 mg/dl (8.6-10.3); Creatinine Clr Calc Pharmacy 87.4 ml/min; Globulin 2.4 gm/dl (2.5-4.0); Magnesium 1.9 mg/dl (1.7-2.4); Potassium 3.7 mmol/L (3.5-5.1); Total Protein 5.6 gm/dl (6.0-8.3)
--- NOTE | 2024-10-15 06:56 | Hospitalist Progress Note ---
Date of Service October 15, 2024 Assessment & Plan (1) Syncope: (2) T2DM (type 2 diabetes mellitus): (3) GERD (gastroesophageal reflux disease): (4) HTN (hypertension): (5) HLD (hyperlipidemia): (6) Gilbert syndrome: (7) Transaminitis: Plan 69 yo male PMHx T2DM not on insulin, GERD, HTN, HLD, Gilbert syndrome admitted with syncope. #Syncope Head imaging without acute pathology or vascular compromise EKG with bifascicular block, this is new compared to EKG obtained through [facility] system which showed RBBB and sinus bradycardia in 2020 - continue monitoring on Tele until tomorrow 10/15/24, monitor for any arrhythmias, palpitations, lightheadedness, chest pain, or new re-syncope TTE 10/14/24 AM: _ Troponin 10/13/24: wnl Stool PCR 10/14/24 PM: POSITIVE norovirus -> isolation precautions Continue Plasmalyte at 80cc/hr #bifascicular block - monitor on tele an additional 24hrs for 3rd degree AV block, for which he'd need pacing - TTE 10/14/24: result pending #Transaminitis/Elevated Bilirubin Bilirubin accounted for by Gilbert syndrome AST/ALT/Alk phos elevation unclear etiology, however known history of Gilbert syndrome may be cause History of intermittently elevated transaminases per [facility] record Repeat CMP 10/15/24: Hepatitis panel: negative #T2DM Last A1c in 05/2024 6.1 -> 8.0 on 10/14/24 Continue metformin and glipizide #GERD Protonix while admitted #HTN Losartan while admitted #HLD Continue atorvastatin FENGI: plasmalyte @80/hr, heart healthy/T2DM Code status: full DVT prophylaxis: lovenox Diet: heart healthy, DM2 Disposition: med/tele Admission and Anticipated Discharge Date Admission Date: October 14, 2024 Subjective [[Dupree - goes by "Prasad" - was seen and evaluated this AM at bedside, patient in no distress, nontoxic appearance. States he slept well, denies any new lightheadedness, dizziness, vision changes, neck pain, headache, SOB, chest pain, or palpitation since coming to floor. Endorses the last thing he recalls prior to losing consciousness is they were talking while playing cards with and friends, then he woke up looking down at his cards on the floor. Per 's report, patient seemed to lean forward and backward a few times with his eyes open, but was unresponsive for about 3-5 minutes. Upon regaining consciousness he did throw up once with some bladder incontinence, then another emesis again in the ER - unclear if bloody or bilious due to contents which included salad, green and red vegetables included. He received 1L IV fluids, zofran, and pepcid before being put on an 80cc plasmalyte drip and taken to the floor. Patient denies any history of syncope, seizures, or arrhythmias, nor family history of them. had recent day-long illness of fever and diarrhea, but pt was not affected.]] Results & Data Results & Data Vital Signs (Past 12 Hours) Vital Signs Temp Pulse Pulse Resp BP Pulse Ox O2 Del Method 10/15/24 03:25 36.7 C 72 18 136/87 97 Room Air 10/15/24 02:10 72 10/14/24 23:17 36.8 C 72 16 143/78 H 97 Room Air 10/14/24 19:52 36.4 C L 72 18 142/79 H 92 Room Air (1) Syncope Syncope type: unspecified Qualified Code(s): R55 - Syncope and collapse (2) T2DM (type 2 diabetes mellitus) Diabetes mellitus intermodal dispatcher insulin use: without intermodal dispatcher use Diabetes mellitus complication status: without complication Qualified Code(s): E11.9 - Type 2 diabetes mellitus without complications (3) GERD (gastroesophageal reflux disease) Esophagitis presence: esophagitis presence not specified Qualified Code(s): K21.9 - Gastro-esophageal reflux disease without esophagitis (4) HTN (hypertension) Hypertension type: primary hypertension Qualified Code(s): I10 - Essential (primary) hypertension (5) HLD (hyperlipidemia) Hyperlipidemia type: mixed hyperlipidemia Qualified Code(s): E78.2 - Mixed hyperlipidemia
--- NOTE | 2024-10-15 07:22 | Electrocardiogram Report ---
Test Reason : Blood Pressure : */* mmHG Vent. Rate : 72 BPM Atrial Rate : 72 BPM P-R Int : 190 ms QRS Dur : 150 ms QT Int : 438 ms P-R-T Axes : 41 -71 51 degrees QTcB Int : 479 ms Normal sinus rhythm Right bundle branch block Left anterior fascicular block Bifascicular block Abnormal ECG No previous ECGs available Confirmed by Kendrick Brody ([id number]) on 10/15/2024 7:22:00 AM Referred By: REFERRED SELF Confirmed By: Kendrick Brody
--- NOTE | 2024-10-15 11:01 | Discharge Summary ---
Date of Service October 15, 2024 Admission HPI Per Admitting Provider 69 yo male PMHx T2DM not on insulin, GERD, HTN, HLD, Gilbert syndrome admitted with syncope. This evening he was playing cards and suddenly slumped over forward and then leaned back and vomited. He has no recollection of the events. Ultimately he regained consciousness and returned to his baseline mentation as short time later. He has never had a similar episode in the past. He was in his usual state of health until this event. He denies lightheadedness, dizziness, palpitations, SOB, N/V/D, changes in stool quality or consistency prior to the event. He does endorse nonspecific abdominal pain. He has no history of cardiac or neurologic pathology. He had a subsequent episode of vomiting in the ED At the present time he denies SHEPARD, dizziness, CP, SOB, N/V/D. Endorses ongoing nonspecific abdominal pain. ED Course: EKG remarkable for bifascicular block, NSR CXR without pathology Mild leukocytosis, transaminitis; labs otherwise unremarkable, negative UA Neuro imaging - head ct, head and neck CTA negative Abdominal CT - small bowel mild wall thickening consistent with nonspecific enteritis; small hiatal hernia; few sigmoid diverticuli w/o diverticulitis Received Pepcid, Zofran, 1L NSS Admission Exam Per Admitting Provider Constitutional: well-appearing, no acute distress HEENT: NCAT, no conjunctival injection CV: regular rhythm, extremities well-perfused, no LE edema Resp: no increased work of breathing GI: soft, nondistended, mild non localized tenderness MSK: no gross deformities appreciated Skin: warm, dry, no rash appreciated Neuro: alert, oriented, no focal neurologic deficit appreciated Principal Diagnosis syncope Discharge Exam Constitutional: A&Ox3, well-appearing, no acute distress HEENT: NC/AT, EOM intact, PERRL b/l, anicteric sclerae CV: RRR, +s1/s2, no m/r/g; extremities well-perfused, no LE edema Resp: clear to auscultation b/l, no increased work of breathing GI: +BS, abdomen soft, nondistended, nontender to palpation, no HSM palpated MSK: 5/5 strength in all extremities, no gross deformities appreciated Skin: warm, dry, no rash Neuro: no facial droop, speech intact, no focal neurologic deficits appreciated - continues to follow all movement-based commands with accuracy, intact heel- denis test b/l Discharge Data Allergies Allergy/AdvReac Type Severity Reaction Status Date / Time No Known Allergies Allergy Verified 10/14/24 03:15 Consultations 10/14/24 01:17 ED Decision to Admit Stat Ordered Studies 10/13/24 22:51 CT abd pelvis IV con only Stat CT angio head w con Stat CT angio neck with con Stat CT head/brain wo con Stat Hospital Course (1) Syncope: (2) T2DM (type 2 diabetes mellitus): (3) Gastroenteritis due to norovirus: (4) Transaminitis: (5) Gilbert syndrome: (6) GERD (gastroesophageal reflux disease): Plan 69 yo male PMHx T2DM not on insulin, GERD, HTN, HLD, Gilbert syndrome admitted with syncope. #Syncope Head imaging without acute pathology or vascular compromise EKG with bifascicular block, this is new compared to EKG obtained through [facility] system which showed RBBB and sinus bradycardia in 2020 -> followup [facility] this week for event monitor, cardio followup at [facility] - Tele through 10/15/24 no new arrhythmias, palpitations, lightheadedness, chest pain, or new re-syncope TTE 10/14/24 AM: LVEF 65-70%, no wall motion abnormalities Troponin 10/13/24: wnl Stool PCR 10/14/24 PM: POSITIVE norovirus -> isolation precautions; instructed to avoid close contact with grandchildren for another week or so to avoid spread; encouraged to eat and drink well, avoid strenuous activity #Bifascicular block - Tele through 10/15/24 no new arrhythmias, palpitations, lightheadedness, chest pain, or new re-syncope - TTE 10/14/24: LVEF 65-70%, no wall motion abnormalities - to followup this week at [facility] clinic for event monitor, referral to cardiology on [facility] #Norovirus positive in stool - asymptomatic, though CT showing mild enteritis - known exposure to and grandchildren with GI symptoms #Transaminitis/Elevated Bilirubin Bilirubin accounted for by Gilbert syndrome CT abdomen 10/13/24 showing liver hypodense, fatty, no masses AST/ALT/Alk phos elevation unclear etiology, however known history of Gilbert syndrome may be cause History of intermittently elevated transaminases per [facility] record Repeat CMP 10/15/24: LFTs resolving, Tbili remains elevated 2.1, but likely due to history of Gilbert syndrome- asymptomatic Hepatitis panel: pending, low clinical suspicion; will contact patient if positive #T2DM Last A1c in 05/2024 6.1 -> 8.0 on 10/14/24 Continue metformin and glipizide #GERD Protonix while admitted #HTN Losartan while admitted #HLD Continue atorvastatin FENGI: plasmalyte @80/hr, heart healthy/T2DM Code status: full DVT prophylaxis: lovenox Diet: heart healthy, DM2 Disposition: home with close outpatient followup Total Time Total Time Spent Total Time Spent (In Minutes): 45 Discharge Plan Discharge Items Patient Disposition: Home - Self-Care Reason For Visit: SYNCOPE Discharge Diagnosis: syncope Activity: Per Instructions section Non-emergency contact: Primary Care Provider Call non-emergency contact if: your symptoms worsen and your pain is not controlled Follow-up/Referrals: Jose Antonio Costa DO [Primary Care Provider] - Paddy Butterfield DO [Resident] - Nj Pearl DO [Resident] - Diet: Carb Consistent or DM2 Addtl Attending Provider Instructions: You were evaluated and treated at [facility] for syncope. You received IV fluids, Zofran for nausea/vomiting, and protonix for your GERD. Your initial EKG showed a "bifascicular block", which is a change from your 2020 finding of only Right bundle branch block (RBBB). We aren't sure when this new finding came about, but can't ignore that it could be related to your syncopal episode which brought you here. We have been monitoring your heart rhythm for the past 1.5 days and you have had no concerning arrhythmias such as those indicative of 2nd or 3rd- degree AV block, nor have you had palpitations, shortness of breath, dizziness, lightheadedness, nausea/vomiting, vision changes, or feeling like you might pass out, even when up and walking around the room. Due to your clinical and medical stability, we feel you can be safely discharged home with close followup at your primary care office. Please take it easy for the next several days- avoid any strenuous activity or exercise, but we do encourage you to continue walking and moving around. A dditionally be sure to have good nutrition: eat well-balanced meals while watching your sugar/carb intake and have good fluid intake, avoid alcohol or caffeine as these can additionally contribute to arrhythmias and potential syncope. Please be seen in our office some time this week so that we can get you set up with a cardiac "event monitor" so that we can continue watching for any changes in your heart rhythm. We will also ensure you get in with cardiology so that your heart has close and consistent followup outside of the hospital. Pending Studies at Discharge: No Stand-Alone Forms: My [facility], Smoking Cessation Medications and DC Order Prescriptions: Continued atorvastatin 40 mg tablet 40 mg HS glipizide 10 mg tablet extended release 24hr 10 mg PO DAILY omeprazole 40 mg capsule,delayed release(DR/EC) 40 mg DAILY omeprazole 40 mg capsule,delayed release(DR/EC) 40 mg DAILY irbesartan 75 mg tablet 75 mg DAILY allopurinol 300 mg tablet 300 mg DAILY metformin 500 mg tablet extended release 24 hr 500 mg PO DAILY aspirin 81 mg Tablet 81 mg PO DAILY Discharge Orders: Discharge Order (Routine); Ordered 10/15/24 Ordered By: Nj Heaton/Other Patient Handouts: High Blood Sugar (Hyperglycemia), Hypoglycemia (Low Blood Sugar), Managing Type 2 Diabetes, What Is Syncope, Treating Syncope: Prevention, Syncope Tx Heart, Treatment for Vasovagal Syncope, Understanding Vasovagal Syncope Admission Data Admit Date/Time: 10/14/24 02:31 Attending Provider: Gloria Rg Admit Provider: Paddy Butterfield Primary Care Provider: Jose Antonio Costa Other Providers: Chani Loo Other Interventions: Discharge Summary Assessment (RN) Last Done: 10/15/24 13:23 Supervising Physician Co-Signing Physician Notes I personally examined the patient and verified garcia points of history and exam, discussed case, and agree with decision making and plan documented by Dr. Pearl. Patient reports feeling well, no events. Reviewed telemetry, recheck ECG with continued bifascicular block. Echo with normal LV function, EF 65-70%, mild , normal RVP. Patient appears comfortable, lungs clear b/l to auscultation, regular rate and rhythm, no lower extremity edema. Patient denies symptoms and hopeful for discharge home. Patient will schedule with PCP office this week, advised event monitoring outpatient and cardiology evaluation, patient understanding. Resident Activity Tracking Resident Involvement: Resident Care Provided Care Provided: Adult [facility] Medicine
[2024-10-15 11:37] VITALS: TEMP 98.1
[2024-10-15 13:40] VITALS: BP 128/75; O2SAT 93
[2024-10-15 14:31] VITALS: PULSE 55
--- NOTE | 2024-10-15 20:47 | Electrocardiogram Report ---
Test Reason : Blood Pressure : */* mmHG Vent. Rate : 57 BPM Atrial Rate : 57 BPM P-R Int : 186 ms QRS Dur : 142 ms QT Int : 444 ms P-R-T Axes : 47 -52 46 degrees QTcB Int : 432 ms Sinus bradycardia Right bundle branch block Left anterior fascicular block Bifascicular block Abnormal ECG When compared with ECG of 13-Oct-2024 21:56, No significant change was found Confirmed by Kendrick Brody ([id number]) on 10/15/2024 8:47:23 PM Referred By: REFERRED SELF Confirmed By: Kendrick Brody
[2024-10-16 02:48] LABS: Hepatitis A Antibody IgM NON-REACTIVE (NON-REACTIVE); Hepatitis B Core Antibody IgM NON-REACTIVE (NON-REACTIVE)
[2024-10-16 09:22] LABS: Hep B Surface Ag with confirm Negative (Negative)
[2024-10-16 09:44] LABS: Hep C Ab Rflx HepCQuant RNA Prelim Positive (Negative)
[2024-10-17 13:17] LABS: Hepatitis C Vira RNA (Log) PCR <1.18 NOT DETECTED Log IU/mL (NOT DETECTED); Hepatitis C Viral RNA by PCR <15 NOT DETECTED IU/mL (NOT DETECTED)
--- NOTE | 2024-10-24 09:17 | Coding Query ---
A supporting diagnosis is required for the test/procedure performed on this patient in order for us to be reimbursed by the patient's insurance. Please provide a supporting diagnosis for the following test/procedure listed below next to the test name. *If there is no additional diagnosis for this patient that would support the following test/procedure please document that below next to the test/procedure. Test(s)/Procedure(s) that require a supporting diagnosis: * 55626 Gastrointestinal Panel DIAGNOSIS: Thank you Jenise Nelson [employer] Once completed, please kindly fax back to [phone] For questions please call [phone] [facility]
== END 2024-10-15 14:31 | disposition home or self-care (01) ==
LOC: ED 21:49 → SUATTDRO 10-14 02:31 → INTOOBSV 10-14 02:31 → 2N 10-14 02:31
DX: K21.9 Gastro-esophageal reflux disease without esophagitis; Z79.899 Other long term (current) drug therapy; R74.01 Elevation of levels of liver transaminase levels; Z79.82 Long term (current) use of aspirin; Z79.84 Long term (current) use of oral hypoglycemic drugs; I45.2 Bifascicular block; R55 Syncope and collapse; E80.4 Gilbert syndrome; E11.9 Type 2 diabetes mellitus without complications; A08.11 Acute gastroenteropathy due to Norwalk agent; E78.2 Mixed hyperlipidemia